=== PATIENT | female | born 1970 | race Caucasian/White ===

== ENCOUNTER 2017-02-04 11:02 | Outpatient (CLI) ==
[2017-02-04 11:23] LABS: BASOPHILS # (AUTO) 0.1 K/uL (0-0.2); BASOPHILS % (AUTO) 0.9 % (0.0-3.0); EOSINOPHILS # (AUTO) 0.1 K/ul (0.0-0.7); EOSINOPHILS % (AUTO) 1.6 % (0.0-7.0); HEMATOCRIT 41.7 % (37.0-47.0); HEMOGLOBIN 14.1 g/dl (12.0-16.0); IMMATURE GRANULOCYTE % (AUTO) 0.4 % (0.0-5.0); LYMPHOCYTES # (AUTO) 1.7 K/uL (0.60-3.4); LYMPHOCYTES % (AUTO) 30.5 (10.0-50.0); MEAN CORPUSCULAR HEMOGLOBIN 31.2 pg (27.0-31.0); MEAN CORPUSCULAR HGB CONC 33.8 (31.8-35.4); MEAN CORPUSCULAR VOLUME 92.3 fl (81.0-99.0); MONOCYTES # (AUTO) 0.5 K/uL (0.4-2.0); MONOCYTES % (AUTO) 8.2 (0-10); NEUTROPHILS # (AUTO) 3.3 K/ul (2.0-6.9); NEUTROPHILS % (AUTO) 58.4; PLATELET COUNT 181 10^3/uL (140-440); RED BLOOD COUNT 4.52 10^6/ul (4.20-5.40); WHITE BLOOD COUNT 5.64 K/ul (4.6-10.2)
[2017-02-04 11:26] LABS: BILIRUBIN,URINE Negative (NEGATIVE); KETONES,URINE Negative (NEGATIVE); LEUKOCYTE ESTERASE ,URINE Negative (NEGATIVE); NITRITE,URINE Negative (NEGATIVE); PROTEIN,URINE Negative (NEGATIVE); URINE, BLOOD Negative (NEGATIVE)
[2017-02-04 11:28] LABS: ADD URINE MICROSCOPIC NO
[2017-02-04 11:34] LABS: COCAIN SCREEN,URINE NEGATIVE (NEGATIVE)
[2017-02-04 12:01] LABS: ALBUMIN 3.9 g/dL (3.4-5.0); ALBUMIN/GLOBULIN RATIO 1.22; ANION GAP 12.9; BILIRUBIN,TOTAL 0.47 mg/dL (0.00-1.20); BUN/CREATININE RATIO 14.81; CALCIUM 9.3 mg/dL (8.2-10.2); CHOL/HDL RATIO 2.7 (4.5-5.5); CREATININE 0.81 mg/dL (0.60-1.30); POTASSIUM 3.9 mmol/L (3.5-5.10); TOTAL PROTEIN 7.1 g/dL (6.4-8.2)
== END 2017-02-04 11:03 | disposition home or self-care (01) ==
LOC: LAB 11:02
PROVIDERS: ATTEND Nurse Practitioner Family
DX: F41.8 Other specified anxiety disorders (principal); E75.6 Lipid storage disorder, unspecified; Z98.84 Bariatric surgery status
CPT/HCPCS: 36415; 80053; 80061; 80306; 81001; 84443; 85025

== ENCOUNTER 2017-08-14 10:15 | Outpatient (CLI) ==
--- NOTE | 2017-08-14 11:06 | US ---
EXAM: Left lower extremity venous Doppler History: Left lower extremity pain. Technique: Multiple sonographic images through the left lower extremity were obtained. Color duplex Doppler was used to interrogate flow. Findings: The left common femoral, greater saphenous, profunda, superficial femoral, popliteal, valeria kandi, posterior tibial and anterior tibial veins demonstrate spontaneous flow with normal compression and normal augmentation. Impression: No sonographic evidence for deep venous thrombosis.
== END 2017-08-14 10:16 | disposition home or self-care (01) ==
LOC: RAD 10:15
PROVIDERS: ATTEND Nurse Practitioner Family
DX: M79.605 Pain in left leg (principal); M79.89 Other specified soft tissue disorders; F17.200 Nicotine dependence, unspecified, uncomplicated

== ENCOUNTER 2017-09-12 16:15 | Outpatient (CLI) | END 2017-09-12 16:16 | disposition home or self-care (01) | LOC: FCC-LAB 16:15 | PROVIDERS: ATTEND Nurse Practitioner Family | DX: E75.6 Lipid storage disorder, unspecified (principal); F41.8 Other specified anxiety disorders | CPT/HCPCS: 36415; 80053; 80061; 85025 ==

== ENCOUNTER 2017-10-23 15:38 | Outpatient (CLI) ==
--- NOTE | 2017-10-23 16:09 | DI ---
EXAM: Chest two view, frontal and lateral views. HISTORY: Nicotine dependence. COMPARISON: None available. FINDINGS: The heart size is normal. There is no pulmonary vascular congestion. The lungs are clear . No pleural effusion or pneumothorax is seen. No acute osseous abnormality identified. Clips seen in the upper abdomen. IMPRESSION: No acute cardiopulmonary process.
--- NOTE | 2017-10-23 16:09 | DI ---
EXAM: Radiographs, right hip HISTORY: Right hip pain. COMPARISON: None available. TECHNIQUE: Two-view. FINDINGS: Bone mineralization is normal. There is no fracture or dislocation. The joint spaces are maintained. No focal soft tissue abnormality is seen. Clip noted in the pelvis. IMPRESSION: No abnormality of the right hip.
== END 2017-10-23 15:39 | disposition home or self-care (01) ==
LOC: RAD 15:38
PROVIDERS: ATTEND Nurse Practitioner Family
DX: M25.551 Pain in right hip (principal); R05 Cough; F17.200 Nicotine dependence, unspecified, uncomplicated

== ENCOUNTER 2017-10-29 13:04 | Outpatient (CLI) | END 2017-10-29 13:05 | disposition home or self-care (01) | LOC: CAR 13:04 | PROVIDERS: ATTEND Nurse Practitioner Family | DX: F17.200 Nicotine dependence, unspecified, uncomplicated (principal) ==

== ENCOUNTER 2018-01-09 14:15 | Outpatient (RCR) ==
--- NOTE | 2017-12-12 16:44 | RS.OTEVAL ---
Subjective Date of Note: 12/12/17 Visit #: 1 Date of Evaluation: 12/12/17 Payer Source: Medicaid Date of Onset/Injury/Change in Status: 08/15/14 Surgery Performed?: No Treatment Diagnosis: M25.532, M79.632 *Precautions: Inflammation in digits of LUE Prior Level of Function.....Patient was independent with: ADL's, Self Care, Work /Vocation, Caregiving, Ambulation/Mobility, Community Integration/Access History of Condition/Mechanism of Injury: Pt reports she does not know exactly when she hurt herself but her Left shoulder and forearm is hurting her at a 5/ 10 at rest. Pt reports when she is using her LUE it hurts at 8/10. 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 Pt reports she has been taking steroids and finishes the medicine today. Pt has used epsom salts and was encouraged to use ice. Pt has edema of her fingers of both hands. Pt has pain of 8/10 with gripping with LUE. Pain at times will run up into her neck and head. Level of Function: Pt continues to work at [employer] and is independent with ADLS. Pt has 18.75% limitation. Current Complaints/Gains: Pain in her LUE forearm, up into her shoulder and the neck. Pt c/o numbness and tingling in her hand and forearm. Pt reports pain in the subscapularis, supraspinatus, infraspinatus, serratus and teres major muscles. Pt complains of pain in the lateral epicondylitis area and forearm. Pt has edema of the left hand : index - 7.4 cm, long- 7.0 cm, ring- 6.6 cm, small- 6.0 cm, thumb 7.4 cm, Right hand: index - 7.0 cm, long- 7.0 cm, ring- 6.5 cm, small-5.7 cm, thumb 7.0 cm Medical History Medical History: Cancer Medical History Comments:: Arthritis in knees, bursitis in Right shoulder, Left wrist pain, and left forearm pain. Ovarian cancer Surgical History Comments:: Gastric sleeve, Left tubal removal, Gall bladder, Total hysterectomy, Tubal ligations. Hx Home Medications: xanax, neurotin, trazadone, cymbalta Patient's Goals: To be able to work without pain in the left arm and shoulder and neck. Pain Assessment - Pain Description Pain Description: Radiating Pain Location: Left wrist and forearm, shoulder and neck. Pain Description: Tingling and numbness in left hand, ring, long, and index Current Pain Intensity: 5 Worst Pain Intensity: 9 Functional Outcome Measures - G Codes & Severity Modifier G Codes: Carrying, moving, and handling. Current is CI, Goal is CH Source of G Code score: Carrying, moving, and handling. Observation - Observation Posture: Normal Handedness: Right Shoulder ROM: Right WFL's Shoulder Muscle Strength: Right WFL's - Left Shoulder ROM Left Shoulder Flexion: 155 Left Shoulder Extension: 50 Left Shoulder Abduction: 90 Left Shoulder Internal Rotation: 45 Left Shoulder External Rotation: 60 Left Shoulder ROM Limitations: Muscle Weakness, Pain - Left Shoulder Strength Left Shoulder Flexion: 3- Fair- Left Shoulder Extension: 3- Fair- Left Shoulder Abduction: 3- Fair- Left Shoulder Adduction: 3- Fair- Left Shoulder External Rotation: 3- Fair- Left Shoulder Internal Rotation: 3- Fair- - Right Shoulder Strength Right Shoulder Flexion: 4+ Good + Right Shoulder Extension: 4+ Good + Right Shoulder Abduction: 4+ Good + Right Shoulder Adduction: 4+ Good + Right Shoulder External Rotation: 4+ Good + Right Shoulder Internal Rotation: 4+ Good + - Special Tests Shoulder Davis-Elías Impingement Test: Negative Left (Had an elevated first rib) Comments: Dash assessment score is 31.25 on optional items and 70.45 on symptom score - Left Elbow ROM Left Elbow Extension: 0 Left Elbow Flexion: 145 Left Elbow Supination: 90 Left Elbow Pronation: 90 - Left Elbow Strength Left Elbow Extension: 4- Good- Left Elbow Flexion: 4- Good- Left Forearm Pronation: 4- Good- Left Forearm Supination: 4- Good- - Right Elbow Strength Right Elbow Extension: 4+ Good + Right Elbow Flexion: 4+ Good + Right Forearm Pronation: 4+ Good + Right Forearm Supination: 4+ Good + Wrist ROM: Bilaterally WFL's Wrist Muscle Strength: Bilaterally WFL's - Medical Receptionist Medical Assistant Strength Left Medical Receptionist Medical Assistant Strength: 46 Right Medical Receptionist Medical Assistant Strength: 52 Medical Receptionist Medical Assistant Strength Left Hand Medical Receptionist Medical Assistant Strength: 46 Right Hand Medical Receptionist Medical Assistant Strength: 52 Dynamometer Testing Position: 2nd Position Palpation Palpation Findings: Tenderness, Trigger Point Sensation Right Upper Extremity: Intact/Normal Left Upper Extremity: Impaired Sensation Description: Numbness Comments: Pt can feel correctly with fingers. Pt's hand is numb. Modalities - Treatment Modality: Ultrasound Parameters/Method Applied: .4 w/cm2 for 8 minutes (non-thermal) to left shoulder to decrease pain and inflammation. Treatment Area: Left shoulder Patient Position: Sitting - Treatment Modality: Class 4 Laser Parameters/Method Applied: Left shoulder to decrease pain. Treatment Area: Left shoulder Patient Position: Sitting - Hot Pack/Cryotherapy Treatment: Cryotherapy Interventions - Exercise/Activities Exercise/Activities/Manual Therapy: MT x 2 to extensor digitorum communis, suprispinatus, subscapularis HOME EXERCISE PROGRAM: ice to left shoulder. Rest it when possible. - Charges Timed Code Treatment Minutes: 70 Total Treatment Time: 60 Procedures billed for this date of service:: Evaluation- min, MT x 2, CP EVALUATION COMPLEXITY LEVEL: HISTORY: Low, EXAM OF BODY SYSTEMS: Low, CLINICAL DECISION MAKING: Low Assessment Assessment: Pt has pain in the LUE forearm, and shoulder. Pt has inflammation in left shoulder and forearm, and digits. Patient Education: Education of diagnosis, Home Exercise Program, Education of Plan of Care Rehab Potential: Good Problems/Comments: Pt has to keep working and is not always able to rest. Short Term Goals Goal #1: Pt pain to decrease to 2/10. Goal to be met by: 12/26/17 Goal #2: Pt to be independent with home exercise program. Goal to be met by: 12/26/17 Goal #3: Pt to increase LUE strength to 4-/5. Tripe Cooker Goals Goal #1: Pt pain to decrease to 0/10. Goal to be met by: 01/13/18 Goal to be met by: 01/13/18 Goal #3: Pt to increase LUE strength to 4+/5. Goal to be met by: 01/13/18 Plan - Treatment to be provided Procedures: Therapeutic Exercises, Therapeutic Activity, Neuromuscular Rehab, Manual Therapy, Patient Education Modalities: Electrical Stimulation, Ultrasound/Phonophoresis, Cryotherapy - Treatment Plan Frequency: 2 X week Duration: 4 weeks ORDER # VISITS AND/OR THROUGH DATE: 8 - Treatment Code (1) Left shoulder pain Code(s): M25.512 - PAIN IN LEFT SHOULDER Comments: M25.512 Left shoulder pain. (2) Pain of left forearm Code(s): M79.632 - PAIN IN LEFT FOREARM Comments: M79.32 Left forearm pain (3) Muscle weakness (generalized) Code(s): M62.81 - MUSCLE WEAKNESS (GENERALIZED) Comments: M62.81 Muscle weakness
--- NOTE | 2017-12-19 08:24 | RS.OTDNOTE ---
Subjective Date of Note: 12/18/17 Visit #: 2 Date of Evaluation: 12/12/17 Payer Source: Medicaid Treatment Diagnosis: M25.532, M79.632 *Precautions: Inflammation in digits of LUE Current Complaints/Gains: Pt with c/o hand numbness and tender areas with palpation in trapezius and epicondyle. Pain Assessment - Pain Description Pain Description: Radiating Pain Location: Left wrist and forearm, shoulder and neck. Pain Description: Tingling and numbness in left hand, ring, long, and index Modalities - Treatment Modality: Ultrasound Parameters/Method Applied: .04w/cm2 x 7 mins each to epicondyle and traps Patient Position: Sitting - Hot Pack/Cryotherapy Treatment: Cryotherapy (Ice massage to epicondyle with CP applied to shoulder/ deltoids ) Interventions - Exercise/Activities Exercise/Activities/Manual Therapy: MT x 1 to extensor digitorum communis, suprispinatus, subscapularis HOME EXERCISE PROGRAM: ice to left shoulder. Rest it when possible. - Charges Timed Code Treatment Minutes: 51 Total Treatment Time: 51 Procedures billed for this date of service:: CP US MT Assessment Patient Education: Education of diagnosis, Body/Joint mechanics, Home Exercise Program, Home Safety, Activity Modification, Education of Plan of Care Patient demonstrates compliance with HEP?: Yes Short Term Goals Goal #1: Pt pain to decrease to 2/10. Goal to be met by: 12/26/17 Progress towards goal: Progressing Goal #2: Pt to be independent with home exercise program. Goal to be met by: 12/26/17 Progress towards goal: Progressing Goal #3: Pt to increase LUE strength to 4-/5. Progress towards goal: Progressing [facility] Goals Goal #1: Pt pain to decrease to 0/10. Goal to be met by: 01/13/18 Progress towards goal: Progressing Goal to be met by: 01/13/18 Progress towards goal: Progressing Goal #3: Pt to increase LUE strength to 4+/5. Goal to be met by: 01/13/18 Progress towards goal: Progressing Plan PLAN OF CARE EXPIRES ON:: 01/13/18 ORDER # VISITS AND/OR THROUGH DATE: 8 PLAN: Cont per POC to max fx strength/ROM with decreased c/o pain
--- NOTE | 2017-12-24 10:10 | RS.OTDNOTE ---
Subjective Date of Note: 12/24/17 Visit #: 3 Date of Evaluation: 12/12/17 Payer Source: Medicaid Treatment Diagnosis: M25.532, M79.632 *Precautions: Inflammation in digits of LUE Current Complaints/Gains: Left shoulder pain at 6/10. Left elbow pain is 5/10. Pain Assessment - Pain Description Pain Description: Radiating Pain Location: Left wrist and forearm, shoulder and neck. Pain Description: Tingling and numbness in left hand, ring, long, and index Current Pain Intensity: 6 Other comments regarding pain:: Pt's pain decreased to 3/10. Pt reports she has pain all of the time. Modalities - Treatment Modality: Ultrasound Parameters/Method Applied: .4w/cm2 for 7 minutes to the left subscapularis and posterior scapula and serratus posterior superior. Interventions - Exercise/Activities Exercise/Activities/Manual Therapy: MT x 2 to extensor digitorum communis, suprispinatus, subscapularis, serratus posterior superior HOME EXERCISE PROGRAM: Patient is going to put ice to left shoulder when she gets home. Rest it when possible. - Charges Timed Code Treatment Minutes: 45 Total Treatment Time: 50 Procedures billed for this date of service:: MT x 2, US Assessment Assessment: Pt's pain decreases with therapy. Pt reports it is feeling better and she is trying to not use her LUE as much at work. Patient Education: Education of diagnosis, Education of Plan of Care Problems/Comments: Pt complains of left shoulder pain in the serratus posterior superior muscle. Patient demonstrates compliance with HEP?: Yes Short Term Goals Goal #1: Pt pain to decrease to 2/10. Goal to be met by: 12/26/17 Progress towards goal: Progressing Goal #2: Pt to be independent with home exercise program. Goal to be met by: 12/26/17 Progress towards goal: Progressing Goal #3: Pt to increase LUE strength to 4-/5. Progress towards goal: Progressing [facility] Goals Goal #1: Pt pain to decrease to 0/10. Goal to be met by: 01/13/18 Progress towards goal: Progressing Goal to be met by: 01/13/18 Progress towards goal: Progressing Goal #3: Pt to increase LUE strength to 4+/5. Goal to be met by: 01/13/18 Progress towards goal: Progressing Plan PLAN OF CARE EXPIRES ON:: 01/13/19 ORDER # VISITS AND/OR THROUGH DATE: 8 PLAN: 8 treatments
--- NOTE | 2017-12-30 08:16 | RS.OTDNOTE ---
Subjective Date of Note: 12/29/17 Visit #: 4 Date of Evaluation: 12/12/17 Payer Source: Medicaid Treatment Diagnosis: M25.532, M79.632 *Precautions: Inflammation in digits of LUE Current Complaints/Gains: Pt states pain relief from therapy and that she has been trying to ice during work breaks. Pain Assessment - Pain Description Pain Description: Radiating Pain Location: Left wrist and forearm, shoulder and neck. Pain Description: Tingling and numbness in left hand, ring, long, and index Modalities - Treatment Modality: Ultrasound Parameters/Method Applied: .04w/cm2 x 10 mins Patient Position: Sitting - Hot Pack/Cryotherapy Treatment: Cryotherapy (CP x10 mins) Interventions - Exercise/Activities Exercise/Activities/Manual Therapy: MT x 2 to extensor digitorum communis, suprispinatus, subscapularis, serratus posterior superior HOME EXERCISE PROGRAM: Patient is going to put ice to left shoulder when she gets home. Rest it when possible. - Charges Timed Code Treatment Minutes: 36 Total Treatment Time: 48 Procedures billed for this date of service:: CP US MT Assessment Patient Education: Education of diagnosis, Body/Joint mechanics, Home Exercise Program, Home Safety, Activity Modification, Education of Plan of Care Patient demonstrates compliance with HEP?: Yes Short Term Goals Goal #1: Pt pain to decrease to 2/10. Goal to be met by: 12/26/17 Progress towards goal: Progressing Goal #2: Pt to be independent with home exercise program. Goal to be met by: 12/26/17 Progress towards goal: Progressing Goal #3: Pt to increase LUE strength to 4-/5. Progress towards goal: Partially Met Fuselage Framer Goals Goal #1: Pt pain to decrease to 0/10. Goal to be met by: 01/13/18 Progress towards goal: Progressing Goal to be met by: 01/13/18 Progress towards goal: Progressing Goal #3: Pt to increase LUE strength to 4+/5. Goal to be met by: 01/13/18 Progress towards goal: Progressing Plan PLAN OF CARE EXPIRES ON:: 01/13/18 ORDER # VISITS AND/OR THROUGH DATE: 8 PLAN: Cont per POC to max fx use, ROM and strength with decreased c/o pain in L UE
--- NOTE | 2018-01-01 09:55 | RS.OTDNOTE ---
Subjective Date of Note: 01/01/18 Visit #: 5 Date of Evaluation: 12/12/17 Payer Source: Medicaid Treatment Diagnosis: M25.532, M79.632 *Precautions: Inflammation in digits of LUE Current Complaints/Gains: Pt states improvement with pain, numbness and ROM. Pain Assessment - Pain Description Pain Description: Radiating, Dull Pain Location: Left wrist and forearm, shoulder and neck. Pain Description: Tingling and numbness in left hand, ring, long, and index Current Pain Intensity: 1-2 Worst Pain Intensity: 5 Modalities - Treatment Modality: Ultrasound Parameters/Method Applied: .04w/cm2 x 10 mins - Hot Pack/Cryotherapy Treatment: Hot Pack Comments:: HP prior to gentle stretching/PROM Interventions - Exercise/Activities Exercise/Activities/Manual Therapy: MT to extensor digitorum communis, suprispinatus, subscapularis, serratus posterior superior. TE performed with red t-band with HEP ed provided for ER and retraction along with door frame stretches and wrist flexion/extension stretches to perform during work hrs. HOME EXERCISE PROGRAM: Patient is going to put ice to left shoulder when she gets home. Rest it when possible. - Objective Findings Objective Findings:: Pain increase with full shoulder flexion and abduction. Radial nerve pain with wrist extension. - Charges Timed Code Treatment Minutes: 34 Total Treatment Time: 46 Procedures billed for this date of service:: HP US EX Assessment Patient Education: Education of diagnosis, Body/Joint mechanics, Home Exercise Program, Home Safety, Activity Modification, Education of Plan of Care Patient demonstrates compliance with HEP?: Yes Short Term Goals Goal #1: Pt pain to decrease to 2/10. Goal to be met by: 12/26/17 Progress towards goal: Progressing Goal #2: Pt to be independent with home exercise program. Goal to be met by: 12/26/17 Progress towards goal: Partially Met Goal #3: Pt to increase LUE strength to 4-/5. Progress towards goal: Met Custodial Goals Goal #1: Pt pain to decrease to 0/10. Goal to be met by: 01/13/18 Progress towards goal: Progressing Goal to be met by: 01/13/18 Progress towards goal: Progressing Goal #3: Pt to increase LUE strength to 4+/5. Goal to be met by: 01/13/18 Progress towards goal: Progressing Plan PLAN OF CARE EXPIRES ON:: 01/13/18 ORDER # VISITS AND/OR THROUGH DATE: 8 PLAN: Continue current POC to max fx strength and ROM with decreased c/o pain/ numbness.
--- NOTE | 2018-01-05 09:57 | RS.OTDNOTE ---
Subjective Date of Note: 01/05/18 Visit #: 6 Date of Evaluation: 12/12/17 Payer Source: Medicaid Treatment Diagnosis: M25.532, M79.632 *Precautions: Inflammation in digits of LUE Current Complaints/Gains: Pt voices and demo increased pain and decreased AROM. States she believes she worked to hard yesterday and that she did apply a CP during work hrs. States pain and AROM is better today vs yesterday, rating pain yesterday at 10 1/2. Pain Assessment - Pain Description Pain Description: Radiating, Dull Pain Location: Left wrist and forearm, shoulder and neck. Pain Description: Tingling and numbness in left hand, ring, long, and index Current Pain Intensity: 4 Worst Pain Intensity: 7 Modalities - Treatment Modality: Ultrasound Parameters/Method Applied: .04w/cm2 x 12 mins Patient Position: Sitting - Hot Pack/Cryotherapy Treatment: Hot Pack, Cryotherapy Comments:: HP x 10 mins prior with CP x 10 mins following US/MT Interventions - Exercise/Activities Exercise/Activities/Manual Therapy: MT to extensor digitorum communis, suprispinatus, subscapularis, serratus posterior superior. HOME EXERCISE PROGRAM: Patient is going to put ice to left shoulder when she gets home. Rest it when possible. - Objective Findings Objective Findings:: Pain increase with full shoulder flexion and abduction. Radial nerve pain with wrist extension. - Charges Timed Code Treatment Minutes: 34 Total Treatment Time: 51 Procedures billed for this date of service:: HP US MT Assessment Patient Education: Education of diagnosis, Body/Joint mechanics, Home Exercise Program, Home Safety, Activity Modification, Education of Plan of Care Patient demonstrates compliance with HEP?: Yes Short Term Goals Goal #1: Pt pain to decrease to 2/10. Goal to be met by: 12/26/17 Progress towards goal: Progressing Goal #2: Pt to be independent with home exercise program. Goal to be met by: 12/26/17 Progress towards goal: Partially Met Goal #3: Pt to increase LUE strength to 4-/5. Progress towards goal: Met Half-Way Goals Goal #1: Pt pain to decrease to 0/10. Goal to be met by: 01/13/18 Progress towards goal: Progressing Goal to be met by: 01/13/18 Progress towards goal: Progressing Goal #3: Pt to increase LUE strength to 4+/5. Goal to be met by: 01/13/18 Progress towards goal: Progressing Plan PLAN OF CARE EXPIRES ON:: 01/13/18 ORDER # VISITS AND/OR THROUGH DATE: 8 PLAN: Cont per POC x 2 tx sessions
--- NOTE | 2018-01-09 15:31 | RS.OTDNOTE ---
Subjective Date of Note: 01/09/18 Visit #: 6 Date of Evaluation: 12/12/17 Payer Source: Medicaid Treatment Diagnosis: M25.532, M79.632 *Precautions: Inflammation in digits of LUE Current Complaints/Gains: Pt states she has been wearing a lateral epicondyle strap for the past 2 days. Pt also states she has been heating up gel patch attached but is instructed to freeze patch and isreal. Pain Assessment - Pain Description Pain Description: Radiating, Dull Pain Location: Left wrist and forearm, shoulder and neck. Pain Description: Tingling and numbness in left hand, ring, long, and index Modalities - Treatment Modality: Ultrasound Parameters/Method Applied: .04w/cm2 x 7 mins to trap and x7 mins to lateral epicondyle - Hot Pack/Cryotherapy Treatment: Cryotherapy Comments:: CP x 10 mins to shoulder along with ice massage to elbow Interventions - Exercise/Activities Exercise/Activities/Manual Therapy: MT to extensor digitorum communis, suprispinatus, subscapularis, serratus posterior superior. Pt performed and ed on stretching program. HOME EXERCISE PROGRAM: Patient is going to put ice to left shoulder when she gets home. Rest it when possible. - Objective Findings Objective Findings:: Pain increase with full shoulder flexion and abduction. Radial nerve pain with wrist extension. - Charges Timed Code Treatment Minutes: 49 Total Treatment Time: 49 Procedures billed for this date of service:: CP US EX Assessment Patient Education: Education of diagnosis, Body/Joint mechanics, Home Exercise Program, Home Safety, Activity Modification, Education of Plan of Care Patient demonstrates compliance with HEP?: Yes Short Term Goals Goal #1: Pt pain to decrease to 2/10. Goal to be met by: 12/26/17 Progress towards goal: Partially Met Goal #2: Pt to be independent with home exercise program. Goal to be met by: 12/26/17 Progress towards goal: Met Goal #3: Pt to increase LUE strength to 4-/5. Progress towards goal: Met Shelter Goals Goal #1: Pt pain to decrease to 0/10. Goal to be met by: 01/13/18 Progress towards goal: Progressing Goal to be met by: 01/13/18 Progress towards goal: Progressing Goal #3: Pt to increase LUE strength to 4+/5. Goal to be met by: 01/13/18 Progress towards goal: Progressing Plan PLAN OF CARE EXPIRES ON:: 01/13/18 ORDER # VISITS AND/OR THROUGH DATE: 8 PLAN: Cont tx x 1 tx session
== END 2018-01-10 23:59 ==
PROVIDERS: ATTEND Nurse Practitioner Family
DX: M25.532 Pain in left wrist (principal); M79.632 Pain in left forearm

== ENCOUNTER 2018-01-13 14:56 | Outpatient (RCR) ==
--- NOTE | 2018-01-13 16:01 | RS.OTDNOTE ---
Subjective Date of Note: 01/13/18 Visit #: 7 Date of Evaluation: 12/12/17 Payer Source: Medicaid Treatment Diagnosis: M25.532, M79.632 *Precautions: Inflammation in digits of LUE Current Complaints/Gains: Pt states good compliance with applying CP and donning lateral epicondyle brace leonardo during work hrs. 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 Pain Assessment - Pain Description Pain Description: Dull Pain Location: Left wrist and forearm, shoulder and neck. Pain Description: Tingling and numbness in left hand, ring, long, and index Current Pain Intensity: 0 Worst Pain Intensity: 2 Modalities - Treatment Modality: US with ES (Comb.) Parameters/Method Applied: To pt tolerance Treatment Area: shoulder - Hot Pack/Cryotherapy Treatment: Cryotherapy Comments:: CP x 10 mins Interventions - Exercise/Activities Exercise/Activities/Manual Therapy: MT to extensor digitorum communis, suprispinatus, subscapularis, serratus posterior superior. Pt performed and ed on stretching program. HOME EXERCISE PROGRAM: Patient is going to put ice to left shoulder when she gets home. Rest it when possible. - Objective Findings Objective Findings:: Pain increase with full shoulder flexion and abduction. Radial nerve pain with wrist extension. - Charges Timed Code Treatment Minutes: 50 Total Treatment Time: 50 Procedures billed for this date of service:: CP US MT Assessment Patient Education: Education of diagnosis, Body/Joint mechanics, Home Exercise Program, Home Safety, Activity Modification, Education of Plan of Care Patient demonstrates compliance with HEP?: Yes Short Term Goals Goal #1: Pt pain to decrease to 2/10. Goal to be met by: 12/26/17 Progress towards goal: Met Goal #2: Pt to be independent with home exercise program. Goal to be met by: 12/26/17 Progress towards goal: Met Goal #3: Pt to increase LUE strength to 4-/5. Progress towards goal: [place] Planning Teacher Goals Goal #1: Pt pain to decrease to 0/10. Goal to be met by: 01/13/18 Progress towards goal: Progressing Goal to be met by: 01/13/18 Goal #3: Pt to increase LUE strength to 4+/5. Goal to be met by: 01/13/18 Progress towards goal: Met Plan PLAN OF CARE EXPIRES ON:: 01/13/18 ORDER # VISITS AND/OR THROUGH DATE: 8 PLAN: Pt DC'd at this time. Pt to cont with HEP, stretching, and applying CP
--- NOTE | 2018-01-27 10:10 | RS.OTQKDC ---
OT Discharge Date of Discharge: 01/27/18 Number of Visits: 7 Reason for Discharge: Pt dc'd to cont I HEP, ice massage, and rest with donning brace.
== END 2018-02-10 23:59 ==
PROVIDERS: ATTEND Nurse Practitioner Family
DX: M25.532 Pain in left wrist (principal); M79.632 Pain in left forearm

== ENCOUNTER 2018-12-21 16:12 | Outpatient (CLI) ==
--- NOTE | 2018-12-21 16:40 | DI ---
EXAM: Two views of the abdomen. History: Left lower quadrant abdominal pain. Findings: Surgical clips seen within the abdomen. Nonspecific but nonobstructive bowel gas pattern. No free intraperitoneal air. Scattered colonic stool. No acute osseous abnormalities and no suspi cious calcifications. Impression: No acute radiographic findings within the abdomen
== END 2018-12-21 16:13 | disposition home or self-care (01) ==
LOC: RAD 16:12
PROVIDERS: ATTEND Family Medicine
DX: R10.32 Left lower quadrant pain (principal); R10.12 Left upper quadrant pain; R10.84 Generalized abdominal pain

== ENCOUNTER 2022-10-22 16:39 | Inpatient (IN) ==
[2022-10-22 17:10] VITALS: BMI 30.9
[2022-10-22] MEDS ORDERED: ASPIRIN CHEWABLE PO ONE (17:17)
[2022-10-22] MEDS ORDERED: MORPHINE 2 MG/ML SYRINGE IVP ONE (17:17)
[2022-10-22] MEDS ORDERED: GI COCKTAIL PO ONE (17:18)
--- NOTE | 2022-10-22 17:21 | ED.PDOC ---
General <LEELA AYALA MD - Last Filed: 10/22/22 18:35> ED Provider: Dr. LEELA AYALA MD Chief Complaint: Chest Pain Stated Complaint: mild to mod anterior chest pain sharp today, constant since 2pm, hx cardiac stent, no allergy to morphine or aspirin Time Seen by Provider: 10/22/22 17:10 Information Source: Patient Primary Care Provider: ROSS JOYNER MD Nursing and Triage Documentation Reviewed and Agree: Yes Does patient meet sepsis criteria?: No System Inflammatory Response Syndrome: Not Applicable Sepsis Protocol: For patient's 13 years and over: Temp is 96.8 and below OR 101 and greater Pulse >90 BPM Resp >20/minute Acutely Altered Mental Status Are patient's symptoms suggestive of a new infection, such as: -Pneumonia -Skin, Soft Tissue -Endocarditis -UTI -Bone, Joint Infection -Implantable Device -Acute Abdominal Infection -Wound Infection -Meningitis -Blood Stream Catheter Infection -Unknown Review of Systems <LEELA AYALA MD - Last Filed: 10/22/22 18:35> Review Of Systems Constitutional: Denies Fever Eyes: Denies Vision change Ears, Nose, Mouth, Throat: Denies Throat pain Respiratory: Denies Short of air Cardiac: Reports Chest pain GI: Denies Abdominal pain : Denies Frequency Musculoskeletal: Denies Neck pain Skin: Denies Cyanosis Neurological: Denies Cognitive dysfunction All Other Systems: Other PFSH <LEELA AYALA MD - Last Filed: 10/22/22 18:35> Medical History Family History Mother Cardiac disease Hyperlipidemia COPD (chronic obstructive pulmonary disease) Breast cancer BROTHER Psychiatric disorder SISTER Breast cancer AUNT Breast cancer Social History Smoking and tobacco status: Current every day smoker Tobacco: How many years used: 25 Passive smoking exposure: No Quit status: considering quitting Second hand smoke exposure: No Smoking risk assessment performed: No Alcohol intake: current Alcohol intake frequency: a few times a week Alcohol type: beer Counseling given: No Counseling provided: none Substance use type: does not use Counseling given: No Counseling provided: none Laura/adventist: MUSLIM Special laura needs: No Agree to transfusion: Yes Adopted: No Caregiver/support person: No Foster care: No Household members: none Housing: house Marital status: S SINGLE Lives independently: Yes Daycare: no daycare Number of children: 2 Number of grandchildren: 3 Highest education level completed: some college, no degree service: No USP: No Current occupational status: employed Current occupational exposures/hazards: No Pets and animals: Yes (hamster) History of recent travel: No Sexually active: No Do you think of yourself as: straight/heterosexual Current gender identity: female Seatbelt use: always Drives intoxicated or rides with intoxicated automation driver: No Water heater temperature set < 120 degrees: Yes Working smoke detector in home: Yes Fire extinguisher in home: Yes Carbon monoxide detector in home: Yes Firearms in home: No Surgical History (Updated 10/22/22 @ 22:32 by ANGEL GUTIERREZ RN) Female Reproductive History Menstrual Hx Hysterectomy: Yes Hx Tubal Ligation: Yes Physical Exam <LEELA AYALA MD - Last Filed: 10/22/22 18:35> Physical Exam Appearance: Reports Well-appearing Ill-appearing: None Pain Distress: Mild Eyes: Reports Conjunctiva clear ENT: Reports Oropharynx normal Neck: Supple Respiratory: Reports Airway patent, Breath sounds clear and Breath sounds equal Cardiovascular: Reports RRR GI/: Reports Soft and Nontender Musculoskeletal: Reports ROM intact and No edema Skin: Reports Warm and Dry Neurological: Reports Alert and Oriented Psychiatric: Reports Affect appropriate Interpretation <LEELA AYALA MD - Last Filed: 10/22/22 18:35> EKG Interpretation Time of EKG #1: 17:31 Rate: Normal Rhythm: Sinus Interpretation: no stemi <DAKOTA NÚÑEZ MD - Last Filed: 10/22/22 22:58> Radiology Interpretation Radiology Interpretation By: Radiologist Radiology Results: Negative Exam Interpreted: Portable CXR and CT Scan EKG Interpretation Time of EKG #2: 19:51 Rate: Normal Rhythm: Sinus Ectopy: None [place]: [place] ST Segment: Normal EKG Interpretation: no ischemia <DAKOTA NÚÑEZ MD - Last Filed: 10/22/22 22:58> Critical Care Note Total Critical Care Time (mins): 0 Course <LEELA AYALA MD - Last Filed: 10/22/22 18:35> Course 10/22/22 17:20 10/22/22 17:20 Orders, Labs, Meds: Lab Review 10/22/22 10/22/22 17:20 17:50 WBC 5.50 RBC 4.38 Hgb 13.8 Hct 40.5 MCV 92.5 MCH 31.5 H MCHC 34.1 RDW Coeff of Sandra 13.9 Plt Count 204 Immature Gran % (Auto) 0.2 Neut % (Auto) 55.2 Lymph % (Auto) 32.4 Graves % (Auto) 8.9 Eos % (Auto) 2.0 Baso % (Auto) 1.3 Neut # (Auto) 3.0 Lymph # (Auto) 1.8 Graves # (Auto) 0.5 Eos # (Auto) 0.1 Baso # (Auto) 0.1 Immature Gran # (Auto) 0.0 Sodium 139.3 Potassium 3.94 Chloride 106.8 Carbon Dioxide 28.6 Anion Gap 7.84 BUN 15.1 Creatinine 0.79 Estimated GFR (MDRD) 76.00 BUN/Creatinine Ratio 19.11 Glucose 82.0 Calcium 9.30 Total Bilirubin 0.41 AST 26.3 ALT 17.5 Alkaline Phosphatase 110.9 Troponin I < 0.012 Total Protein 7.15 Albumin 4.36 Globulin 2.79 Albumin/Globulin Ratio 1.56 D-Dimer 707.53 H SARS CoV-2 RNA Rapid MARLY Negative Orders Category Date Time Status PLACE PATIENT OBSERVATION .TO MEDSURG (MONITORED BED ADMISSION 10/22/22 20:27 Active ) EKG-(ED ONLY) Stat CARDIO 10/22/22 17:17 Completed INTAKE & OUTPUT Q8HR CARE 10/22/22 20:27 Completed NOTIFY PHYSICIAN OF CONSULT 0600 CARE 10/22/22 20:30 Active NOTIFY PHYSICIAN OF CONSULT ONCE CARE 10/22/22 20:30 Completed NPO REMINDER: IMAGING ONCE CARE 10/22/22 18:03 Completed TELEMETRY MONITORING TELE CARE 10/22/22 20:27 Active VITAL SIGNS Q4HR CARE 10/22/22 20:28 Active PHYSICIAN CONSULTATION [CONS] Routine CONSULTS 10/23/22 07:30 Ordered CARDIAC DIET DIETARY 10/23/22 Breakfast Ordered BASIC METABOLIC PANEL DAILY@0600 LAB 10/23/22 06:00 Ordered BASIC METABOLIC PANEL DAILY@0600 LAB 10/24/22 06:00 Ordered CBC W/ AUTO DIFF DAILY@0600 LAB 10/23/22 06:00 Ordered CBC W/ AUTO DIFF DAILY@0600 LAB 10/24/22 06:00 Ordered CBC W/ AUTO DIFF Stat LAB 10/22/22 17:20 Completed CMP [COMPREHENSIVE METABOLIC PANEL] Stat LAB 10/22/22 17:20 Completed CREATINE KINASE Q8H LAB 10/23/22 02:30 Ordered CREATINE KINASE Q8H LAB 10/23/22 10:30 Ordered D-DIMER Stat LAB 10/22/22 17:20 Completed SARS COV-2 RNA RAPID MARLY Stat LAB 10/22/22 17:50 Completed TROPONIN I Q8H LAB 10/23/22 02:30 Ordered TROPONIN I Q8H LAB 10/23/22 10:30 Ordered TROPONIN I Stat LAB 10/22/22 17:20 Completed Aspirin [Aspirin Chewable] MEDS 10/22/22 17:17 Discontinued 324 mg PO ONCE ONE Enoxaparin Sodium [Lovenox] MEDS 10/23/22 09:00 Active 40 mg SUBCUT DAILY Hydromorphone HCl [Dilaudid 1 mg/ml Syringe] MEDS 10/22/22 20:27 Active 1 mg IVP Q4HR PRN Mag-Al Plus//Lidocaine [Gi Cocktail] MEDS 10/22/22 17:18 Discontinued 30 ml PO ONCE ONE Morphine Sulfate [Morphine 2 mg/ml Syringe] MEDS 10/22/22 17:17 Discontinued 2 mg IVP ONCE ONE Ondansetron HCl/Pf [Zofran 4 mg/2 ml] MEDS 10/22/22 20:27 Active 4 mg IVP Q6H PRN Sodium Chloride 0.9% [Sodium Chloride] 1,000 ml MEDS 10/22/22 20:30 Active IV 75 mls/hr RESUSCITATION STATUS Routine OTHERS 10/22/22 20:27 Ordered CHEST, 1V AP ONLY Stat RADS 10/22/22 17:[address] CHEST PE PROTOCOL Stat RADS 10/22/22 18:03 Completed Medications Generic Name Dose Route Start Last Admin Trade Name Freq PRN Reason Stop Dose Admin Albuterol Sulfate 2 puff 10/22/22 21:57 Albuterol Sulfate (Ventolin Hfa) 18 Gm 1 Puff With Spacer IH Q6H PRN Dyspnea Atorvastatin Calcium 40 mg 10/22/22 22:00 Atorvastatin Calcium 20 Mg Tablet PO BEDTIME JUAN Enoxaparin Sodium 40 mg 10/23/22 09:00 Enoxaparin Sodium 40 Mg/0.4 Ml Syr SUBCUT DAILY [facility] Ferrous Sulfate 324 mg 10/22/22 22:35 Ferrous Sulfate 324 Mg Tablet. PO EVERY OTHER DAY JUAN Gabapentin 600 mg 10/23/22 09:00 Gabapentin 300 Mg Capsule PO BID JUAN Hydromorphone HCl 1 mg 10/22/22 20:27 Hydromorphone Hcl 1 Mg/Ml Syringe IVP Q4HR PRN Severe Pain Sodium Chloride 1,000 mls @ 75 mls/hr 10/22/22 20:30 10/22/22 22:21 Sodium Chloride IV 75 mls/hr .[id number] JUAN Administration Nitroglycerin 0.4 mg 10/22/22 21:57 Nitroglycerin 0.4 Mg Tab.Subl SL Q5M PRN chest pain Non-Formulary Medication 100 mg 10/22/22 22:00 Fluvoxamine PO QHS [facility] Non-Formulary Medication 0.25 - 0.5 mg 10/22/22 22:00 Semaglutide [Ozempic] SUBCUT DIRECTED [facility] Non-Formulary Medication 20 mg 10/22/22 22:00 Suvorexant PO QHS [facility] Ondansetron HCl 4 mg 10/22/22 20:27 Ondansetron Hcl/Pf 4 Mg/2 Ml Sdv IVP Q6H PRN Nausea / Vomiting Pantoprazole Sodium 40 mg 10/22/22 22:00 Pantoprazole Sodium 40 Mg Tablet. PO DAILY JUAN Ropinirole HCl 0.5 mg 10/23/22 09:00 Ropinirole Hcl 0.25 Mg Tablet PO DAILY [facility] Sucralfate 1 gm 10/22/22 22:00 Sucralfate 1 Gm Tablet PO ACHS JUAN Discontinued Medications Generic Name Dose Route Start Last Admin Trade Name Freq PRN Reason Stop Dose Admin Al Hydroxide/Mg Hydroxide 30 ml 10/22/22 17:18 10/22/22 17:53 Mag-Al Plus//Lidocaine 30 Ml Btl PO 10/22/22 17:19 30 ml ONCE ONE Administration Aspirin 324 mg 10/22/22 17:17 10/22/22 17:52 Aspirin 81 Mg Tab.Chew PO 10/22/22 17:18 324 mg ONCE ONE Administration Morphine Sulfate 2 mg 10/22/22 17:17 10/22/22 17:53 Morphine Sulfate 2 Mg/Ml Syringe IVP 10/22/22 17:18 2 mg ONCE ONE Administration Vital Signs: Temp Pulse Resp BP Pulse Ox 10/22/22 17:04 98 F 68 20 115/70 100 <DAKOTA NÚÑEZ MD - Last Filed: 10/22/22 22:58> Course Orders, Labs, Meds: Lab Review 10/22/22 10/22/22 17:20 17:50 WBC 5.50 RBC 4.38 Hgb 13.8 Hct 40.5 MCV 92.5 MCH 31.5 H MCHC 34.1 RDW Coeff of Sandra 13.9 Plt Count 204 Immature Gran % (Auto) 0.2 Neut % (Auto) 55.2 Lymph % (Auto) 32.4 Graves % (Auto) 8.9 Eos % (Auto) 2.0 Baso % (Auto) 1.3 Neut # (Auto) 3.0 Lymph # (Auto) 1.8 Graves # (Auto) 0.5 Eos # (Auto) 0.1 Baso # (Auto) 0.1 Immature Gran # (Auto) 0.0 Sodium 139.3 Potassium 3.94 Chloride 106.8 Carbon Dioxide 28.6 Anion Gap 7.84 BUN 15.1 Creatinine 0.79 Estimated GFR (MDRD) 76.00 BUN/Creatinine Ratio 19.11 Glucose 82.0 Calcium 9.30 Total Bilirubin 0.41 AST 26.3 ALT 17.5 Alkaline Phosphatase 110.9 Troponin I < 0.012 Total Protein 7.15 Albumin 4.36 Globulin 2.79 Albumin/Globulin Ratio 1.56 D-Dimer 707.53 H SARS CoV-2 RNA Rapid MARLY Negative Orders Category Date Time Status PLACE PATIENT OBSERVATION .TO MEDSURG (MONITORED BED ADMISSION 10/22/22 20:27 Active ) EKG-(ED ONLY) Stat CARDIO 10/22/22 17:17 Completed INTAKE & OUTPUT Q8HR CARE 10/22/22 20:27 Completed NOTIFY PHYSICIAN OF CONSULT 0600 CARE 10/22/22 20:30 Active NOTIFY PHYSICIAN OF CONSULT ONCE CARE 10/22/22 20:30 Completed NPO REMINDER: IMAGING ONCE CARE 10/22/22 18:03 Completed TELEMETRY MONITORING TELE CARE 10/22/22 20:27 Active VITAL SIGNS Q4HR CARE 10/22/22 20:28 Active PHYSICIAN CONSULTATION [CONS] Routine CONSULTS 10/23/22 07:30 Ordered CARDIAC DIET DIETARY 10/23/22 Breakfast Ordered BASIC METABOLIC PANEL DAILY@0600 LAB 10/23/22 06:00 Ordered BASIC METABOLIC PANEL DAILY@0600 LAB 10/24/22 06:00 Ordered CBC W/ AUTO DIFF DAILY@0600 LAB 10/23/22 06:00 Ordered CBC W/ AUTO DIFF DAILY@0600 LAB 10/24/22 06:00 Ordered CBC W/ AUTO DIFF Stat LAB 10/22/22 17:20 Completed CMP [COMPREHENSIVE METABOLIC PANEL] Stat LAB 10/22/22 17:20 Completed CREATINE KINASE Q8H LAB 10/23/22 02:30 Ordered CREATINE KINASE Q8H LAB 10/23/22 10:30 Ordered D-DIMER Stat LAB 10/22/22 17:20 Completed SARS COV-2 RNA RAPID MARLY Stat LAB 10/22/22 17:50 Completed TROPONIN I Q8H LAB 10/23/22 02:30 Ordered TROPONIN I Q8H LAB 10/23/22 10:30 Ordered TROPONIN I Stat LAB 10/22/22 17:20 Completed Aspirin [Aspirin Chewable] MEDS 10/22/22 17:17 Discontinued 324 mg PO ONCE ONE Enoxaparin Sodium [Lovenox] MEDS 10/23/22 09:00 Active 40 mg SUBCUT DAILY Hydromorphone HCl [Dilaudid 1 mg/ml Syringe] MEDS 10/22/22 20:27 Active 1 mg IVP Q4HR PRN Mag-Al Plus//Lidocaine [Gi Cocktail] MEDS 10/22/22 17:18 Discontinued 30 ml PO ONCE ONE Morphine Sulfate [Morphine 2 mg/ml Syringe] MEDS 10/22/22 17:17 Discontinued 2 mg IVP ONCE ONE Ondansetron HCl/Pf [Zofran 4 mg/2 ml] MEDS 10/22/22 20:27 Active 4 mg IVP Q6H PRN Sodium Chloride 0.9% [Sodium Chloride] 1,000 ml MEDS 10/22/22 20:30 Active IV 75 mls/hr RESUSCITATION STATUS Routine OTHERS 10/22/22 20:27 Ordered CHEST, 1V AP ONLY Stat RADS 10/22/22 17:[address] CHEST PE PROTOCOL Stat RADS 10/22/22 18:03 Completed Medications Generic Name Dose Route Start Last Admin Trade Name Freq PRN Reason Stop Dose Admin Albuterol Sulfate 2 puff 10/22/22 21:57 Albuterol Sulfate (Ventolin Hfa) 18 Gm 1 Puff With Spacer IH Q6H PRN Dyspnea Atorvastatin Calcium 40 mg 10/22/22 22:00 Atorvastatin Calcium 20 Mg Tablet PO BEDTIME JUAN Enoxaparin Sodium 40 mg 10/23/22 09:00 Enoxaparin Sodium 40 Mg/0.4 Ml Syr SUBCUT DAILY [facility] Ferrous Sulfate 324 mg 10/22/22 22:35 Ferrous Sulfate 324 Mg Tablet. PO EVERY OTHER DAY JUAN Gabapentin 600 mg 10/23/22 09:00 Gabapentin 300 Mg Capsule PO BID JUAN Hydromorphone HCl 1 mg 10/22/22 20:27 Hydromorphone Hcl 1 Mg/Ml Syringe IVP Q4HR PRN Severe Pain Sodium Chloride 1,000 mls @ 75 mls/hr 10/22/22 20:30 10/22/22 22:21 Sodium Chloride IV 75 mls/hr .[id number] JUAN Administration Nitroglycerin 0.4 mg 10/22/22 21:57 Nitroglycerin 0.4 Mg Tab.Subl SL Q5M PRN chest pain Non-Formulary Medication 100 mg 10/22/22 22:00 Fluvoxamine PO QHS [facility] Non-Formulary Medication 0.25 - 0.5 mg 10/22/22 22:00 Semaglutide [Ozempic] SUBCUT DIRECTED [facility] Non-Formulary Medication 20 mg 10/22/22 22:00 Suvorexant PO QHS [facility] Ondansetron HCl 4 mg 10/22/22 20:27 Ondansetron Hcl/Pf 4 Mg/2 Ml Sdv IVP Q6H PRN Nausea / Vomiting Pantoprazole Sodium 40 mg 10/22/22 22:00 Pantoprazole Sodium 40 Mg Tablet. PO DAILY JUNA Ropinirole HCl 0.5 mg 10/23/22 09:00 Ropinirole Hcl 0.25 Mg Tablet PO DAILY JUAN Sucralfate 1 gm 10/22/22 22:00 Sucralfate 1 Gm Tablet PO ACHS JUAN Discontinued Medications Generic Name Dose Route Start Last Admin Trade Name Freq PRN Reason Stop Dose Admin Al Hydroxide/Mg Hydroxide 30 ml 10/22/22 17:18 10/22/22 17:53 Mag-Al Plus//Lidocaine 30 Ml Btl PO 10/22/22 17:19 30 ml ONCE ONE Administration Aspirin 324 mg 10/22/22 17:17 10/22/22 17:52 Aspirin 81 Mg Tab.Chew PO 10/22/22 17:18 324 mg ONCE ONE Administration Morphine Sulfate 2 mg 10/22/22 17:17 10/22/22 17:53 Morphine Sulfate 2 Mg/Ml Syringe IVP 10/22/22 17:18 2 mg ONCE ONE Administration Vital Signs: Temp Pulse Resp BP Pulse Ox 10/22/22 17:04 98 F 68 20 115/70 100 ELEANOR Risk Score <LEELA AYALA MD - Last Filed: 10/22/22 18:35> ELEANOR Risk Score: Risk Score Odds of by 30D 0 0.1 (0.1-0.2) 1 0.3 (0.2-0.3) 2 0.4 (0.3-0.5) 3 0.7 (0.6-0.9) 4 1.2 (1.0-1.5) 5 2.2 (1.9-2.6) 6 3.0 (2.5-3.6) 7 4.8 (3.8-6.1) <DAKOTA NÚÑEZ MD - Last Filed: 10/22/22 22:58> Age >/= 65: No >/= 3 CAD Risk Factors: Yes Known CAD (Stenosis >/= 50%): Yes ASA Use in Past 7 Days: Yes Severe Angina (>/= 2 episodes in 24 hours): Yes EKG ST Changes >/= 0.5mm: No Postive Cardiac Marker: No ELEANOR Total Score: 4 Discharge Plan Discharge Patient Disposition: PLACED OBSERVATION Discharge Problem: Chest pain Did you review [place] [employer] for ALL controlled substances?: Not Applicable ED Provider: LEELA AYALA Condition: Fair <LEELA AYALA MD - Last Filed: 10/22/22 18:35> Physician Progress Note: care to midnight doctor at 19:00 []
[2022-10-22 17:30] LABS: BASOPHILS # (AUTO) 0.1 K/uL (0-0.2); BASOPHILS % (AUTO) 1.3 % (0.0-3.0); EOSINOPHILS # (AUTO) 0.1 K/ul (0.0-0.7); HEMATOCRIT 40.5 % (37.0-47.0); HEMOGLOBIN 13.8 g/dl (12.0-16.0); IMMATURE GRANULOCYTE % (AUTO) 0.2 % (0.0-5.0); LYMPHOCYTES # (AUTO) 1.8 K/uL (0.60-3.4); LYMPHOCYTES % (AUTO) 32.4 (10.0-50.0); MEAN CORPUSCULAR HEMOGLOBIN 31.5 pg (27.0-31.0); MEAN CORPUSCULAR HGB CONC 34.1 (31.8-35.4); MEAN CORPUSCULAR VOLUME 92.5 fl (81.0-99.0); MONOCYTES # (AUTO) 0.5 K/uL (0.4-2.0); MONOCYTES % (AUTO) 8.9 (0-10); NEUTROPHILS % (AUTO) 55.2 % (42.2-75.2); PLATELET COUNT 204 10^3/uL (140-440); RDW COEFFICIENT OF VARIATION 13.9 % (11.6-14.8); RED BLOOD COUNT 4.38 10^6/ul (4.20-5.40)
[2022-10-22 17:41] LABS: ALANINE AMINOTRANSFERASE 17.5 U/L (0-35); ALBUMIN 4.36 g/dL (3.5-5.0); ALKALINE PHOSPHATASE 110.9 U/L (38-126); ASPARTATE AMINO TRANSFERASE 26.3 U/L (14-36); BILIRUBIN,TOTAL 0.41 mg/dL (0.2-1.3); BLOOD UREA NITROGEN 15.1 mg/dL (7-17); CARBON DIOXIDE 28.6 mmol/L (22-30.0); CHLORIDE 106.8 mmol/L (98-107); CREATININE 0.79 mg/dL (0.60-1.30); POTASSIUM 3.94 mmol/L (3.5-5.1); SODIUM 139.3 mmol/L (134.5-145); TOTAL PROTEIN 7.15 g/dL (6.3-8.2)
--- NOTE | 2022-10-22 17:47 | DI ---
EXAM: SINGLE-VIEW CHEST HISTORY: Chest pain COMPARISON: Single-view chest 07/22/2022 FINDINGS: The cardiomediastinal silhouette is stable. There is no consolidation or effusion. No ac round valley osseous abnormalities. IMPRESSION: No evidence of active pulmonary disease
[2022-10-22 17:53] LABS: TROPONIN I < 0.012 ng/ml (0.0000-0.120)
[2022-10-22 18:32] LABS: SARS COV-2 RNA RAPID NAAT NEGATIVE (NEGATIVE)
--- NOTE | 2022-10-22 19:10 | CT ---
EXAM: CTA OF THE PULMONARY ARTERIES WITH CONTRAST TECHNIQUE: CTA of the pulmonary arteries was performed with contrast. 2-D and 3-D reconstructions we re performed. HISTORY: Elevated D-dimer COMPARISON: None. FINDINGS: Pulmonary arteries: No pulmonary embolus detected. Lungs/pleura: No mass or consolidation. No pleural effusion. Mediastinum: No adenopathy. Cardiovascular: No pericardial effusion. Atherosclerosis of the aorta and branch vessels. Coronary ar sean calcifications. Chest wall/axillae/thoracic inlet: No mass or adenopathy. Imaged upper abdomen: There is a small hiatal hernia. The esophagus at the diaphragm is mildly th ickened. Correlate with any evidence of reflux or esophagitis. There appears to been prior gastric s urgery. Bones: No aggressive osseous lesion identified. IMPRESSION: 1. Negative for pulmonary embolus. 2. Hiatal hernia with mild thickening of the esophagus at the gastroesophageal junction. Correlate w ith any prior history of esophagitis or reflux. All CT scans are performed using dose optimization techniques as appropriate to the performed exam an d includes at least one of the following: Automated exposure control, adjustment of the mA and/or kV according to size, and the use of iterative reconstruction technique. All CT scans are performed using dose optimization techniques as appropriate to the performed exam an d include at least one of the following: Automated exposure control, adjustment of the mA and/or kV according t o size, and the use of iterative reconstruction technique.
[2022-10-22] MEDS ORDERED: ZOFRAN 4 MG/2 ML IVP PRN (20:27)
[2022-10-22] MEDS ORDERED: DILAUDID 1 MG/ML SYRINGE IVP PRN (20:27)
[2022-10-22] MEDS ORDERED: NITROSTAT SL PRN (21:57)
[2022-10-22] MEDS ORDERED: VENTOLIN HFA (PER PUFF-WITH SPACER) IH PRN (21:57)
[2022-10-22] MEDS: SODIUM CHLORIDE 1,000 ML IV SCH (22:21)
[2022-10-22] MEDS: FERROUS SULFATE PO SCH (23:30)
[2022-10-22] MEDS: REQUIP PO SCH (23:52)
[2022-10-22] MEDS: LIPITOR PO SCH (23:52)
[2022-10-22] MEDS: CARAFATE PO SCH (23:52)
[2022-10-22] MEDS: NEURONTIN PO SCH (23:52)
[2022-10-22] MEDS: PROTONIX PO SCH (23:53)
[2022-10-23 03:00] LABS: BASOPHILS # (AUTO) 0.1 K/uL (0-0.2); EOSINOPHILS # (AUTO) 0.2 K/ul (0.0-0.7); EOSINOPHILS % (AUTO) 2.9 % (0.0-7.0); HEMATOCRIT 36.1 % (37.0-47.0); HEMOGLOBIN 12.3 g/dl (12.0-16.0); IMMATURE GRANULOCYTE % (AUTO) 0.3 % (0.0-5.0); LYMPHOCYTES # (AUTO) 1.9 K/uL (0.60-3.4); MEAN CORPUSCULAR HEMOGLOBIN 31.9 pg (27.0-31.0); MEAN CORPUSCULAR HGB CONC 34.1 (31.8-35.4); MEAN CORPUSCULAR VOLUME 93.5 fl (81.0-99.0); MONOCYTES # (AUTO) 0.7 K/uL (0.4-2.0); MONOCYTES % (AUTO) 12.1 (0-10); NEUTROPHILS % (AUTO) 51.7 % (42.2-75.2); PLATELET COUNT 179 10^3/uL (140-440); RED BLOOD COUNT 3.86 10^6/ul (4.20-5.40); WHITE BLOOD COUNT 5.87 K/ul (4.6-10.2)
[2022-10-23 03:13] LABS: BLOOD UREA NITROGEN 21.1 mg/dL (7-17); CALCIUM 8.14 mg/dL (8.4-10.2); CARBON DIOXIDE 28.2 mmol/L (22-30.0); CHLORIDE 107.7 mmol/L (98-107); CREATINE KINASE 75.9 U/L (30-135); CREATININE 0.78 mg/dL (0.60-1.30); GLUCOSE 85.6 mg/dL (74-106); HDL CHOLESTEROL 54.8 mg/dL (35-80); LDL CHOLESTEROL,CALCULATED 69 mmol/L; POTASSIUM 4.07 mmol/L (3.5-5.1); SODIUM 137.6 mmol/L (134.5-145); TRIGLYCERIDES 38.7 mg/dL (0-150); VLDL CHOLESTEROL 8 mg/dL (2-30)
[2022-10-23 03:36] LABS: TROPONIN I < 0.012 ng/ml (0.0000-0.120)
[2022-10-23] MEDS ORDERED: BENADRYL IV ONE (04:32)
[2022-10-23] MEDS ORDERED: SODIUM CHLORIDE IV ONE (04:32)
[2022-10-23] MEDS ORDERED: BENADRYL ONE (04:36)
[2022-10-23] MEDS: CARAFATE PO SCH ×4 (06:03→20:22)
[2022-10-23] MEDS ORDERED: NEURONTIN PO SCH (09:00)
[2022-10-23] MEDS ORDERED: REQUIP PO SCH (09:00)
[2022-10-23] MEDS: NEURONTIN PO SCH ×2 (09:11→20:22)
[2022-10-23] MEDS: TORADOL IVP PRN (09:11)
[2022-10-23] MEDS: LOVENOX SUBCUT SCH (09:12)
[2022-10-23] MEDS: PROTONIX PO SCH ×2 (09:12→17:03)
--- NOTE | 2022-10-23 09:13 | PCM.PROG ---
Date Seen by Provider: 10/23/22 Time Seen by Provider: 08:10 Subjective: Still with chest pain. Pain worsened by position and movement of left shoulder and neck. Objective: Vitals: T=97.9 F, P=64, R=18, LK=840/77, SPO2=98 Appears comfortable. NAD. HEENT: [] Neck: []Supple, nontender. Lungs: [] Clear. BS equal. Chest wall nontender. CVS: [] RRR Abdomen: [] Extremities: [] Neurological: [] Skin: [] Lab/Tests/Diagnostic Imaging: [] (1) Chest pain: Status: Acute Code(s): R07.9 - Chest pain, unspecified SNOMED Code(s): 64805290 Assessment: Clinically stable. Plan: Dr Peters to see today; home when cleared by him.
[2022-10-23 10:50] LABS: TROPONIN I < 0.012 ng/ml (0.0000-0.120)
[2022-10-23] MEDS: SODIUM CHLORIDE 1,000 ML IV SCH ×2 (13:32→23:50)
[2022-10-23] MEDS: ASPIRIN EC PO SCH (17:03)
[2022-10-23] MEDS: SUVOREXANT 20 MG PO SCH ×2 (20:20)
[2022-10-23] MEDS: LIPITOR PO SCH (20:22)
[2022-10-23] MEDS: REQUIP PO SCH (20:22)
[2022-10-24 05:13] LABS: BASOPHILS # (AUTO) 0.1 K/uL (0-0.2); BASOPHILS % (AUTO) 0.9 % (0.0-3.0); EOSINOPHILS # (AUTO) 0.2 K/ul (0.0-0.7); EOSINOPHILS % (AUTO) 3.4 % (0.0-7.0); HEMATOCRIT 34.9 % (37.0-47.0); HEMOGLOBIN 11.6 g/dl (12.0-16.0); IMMATURE GRANULOCYTE % (AUTO) 0.2 % (0.0-5.0); LYMPHOCYTES # (AUTO) 1.7 K/uL (0.60-3.4); MEAN CORPUSCULAR HEMOGLOBIN 31.4 pg (27.0-31.0); MEAN CORPUSCULAR HGB CONC 33.2 (31.8-35.4); MEAN CORPUSCULAR VOLUME 94.6 fl (81.0-99.0); MONOCYTES # (AUTO) 0.5 K/uL (0.4-2.0); MONOCYTES % (AUTO) 9.1 (0-10); NEUTROPHILS # (AUTO) 2.9 K/ul (2.0-6.9); NEUTROPHILS % (AUTO) 54.4 % (42.2-75.2); PLATELET COUNT 165 10^3/uL (140-440); RDW COEFFICIENT OF VARIATION 13.9 % (11.6-14.8); RED BLOOD COUNT 3.69 10^6/ul (4.20-5.40); WHITE BLOOD COUNT 5.28 K/ul (4.6-10.2)
[2022-10-24 05:25] LABS: BLOOD UREA NITROGEN 15.3 mg/dL (7-17); CALCIUM 7.87 mg/dL (8.4-10.2); CARBON DIOXIDE 25.5 mmol/L (22-30.0); CHLORIDE 109.6 mmol/L (98-107); CREATININE 0.64 mg/dL (0.60-1.30); GLUCOSE 123.3 mg/dL (74-106); POTASSIUM 3.83 mmol/L (3.5-5.1); SODIUM 137.9 mmol/L (134.5-145)
[2022-10-24] MEDS: CARAFATE PO SCH ×4 (05:47→20:46)
[2022-10-24] MEDS: PROTONIX PO SCH ×2 (05:47→16:37)
[2022-10-24] MEDS: FERROUS SULFATE PO SCH (08:33)
[2022-10-24] MEDS: NEURONTIN PO SCH ×2 (08:34→20:45)
[2022-10-24] MEDS: ASPIRIN EC PO SCH (08:34)
[2022-10-24] MEDS: LOVENOX SUBCUT SCH (08:35)
--- NOTE | 2022-10-24 12:40 | PCM.PROG ---
Date Seen by Provider: 10/24/22 Time Seen by Provider: 12:38 Subjective: dx. chest pain Objective: Vitals: T=97.2 F, P=72, R=16, BP=90/64, SPO2=97 HEENT: []conjunctiva clear Neck: []supple Lungs: [] no repiratory distress CVS: []rrr Abdomen: []nondistended Extremities: []brandie Neurological: []alert Skin: []pink Lab/Tests/Diagnostic Imaging: [] (1) Chest pain: Status: Acute Code(s): R07.9 - Chest pain, unspecified SNOMED Code(s): 17666526 Plan: obtain authorization for stress testing, obtain Dr Fran brady
--- NOTE | 2022-10-24 13:09 | CONS ---
DATE OF CONSULTATION: 10/23/22 REASON FOR CONSULTATION: Chest pain HISTORY OF PRESENT ILLNESS: 51 year old white female was hospitalized on 10/22/22 with complaint of having chest pain. The patient says that her chest pain is around left nipple, sharp pain going through to the back and and going up the left clavicular area and neck area down to the left arm. According to the patient this type of pain started three weeks ago but again after 10 days total duration of 15-20 minutes. She says that this pain is also associated with left arm weakness. She also has some neck pain. On further questioning the patient says that she has weakness in both arm both almost dropped the resident. 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 REVIEW OF SYSTEMS: CONSTITUTIONAL: No night sweats. No fatigue, malaise, lethargy. No fever or chills. HEENT: Eyes: No visual changes. No eye pain. No eye discharge. ENT: No sinus drainage. No epistaxis. No sinus pain. No sore throat. No odynophagia. No ear pain. No congestion. RESPIRATORY: No cough, no congestion. No hemoptysis. No shortness of breath. CARDIOVASCULAR: No angina symptoms. No CHF symptoms. No atypical chest pain for CAD. No palpitations. No orthopnea. GASTROINTESTINAL: No abdominal pain. No nausea or vomiting. No diarrhea or constipation. No hematemesis. No hematochezia. GENITOURINARY: No urgency. No frequency. No dysuria. No hematuria. No obstructive symptoms. No discharge. No pain. No significant abnormal bleeding. MUSCULOSKELETAL: No musculoskeletal pain. No joint swelling. NEUROLOGICAL: No headache. No neck pain. No syncope. No seizures. No dizziness. PSYCHIATRIC: Not anxious. No depression. No suicidal thoughts. No homicidal thoughts. SKIN: No rash. No lesions. No wounds. ENDOCRINE: No unexplained weight loss. No weight gain. HEMATOLOGIC/LYMPHATIC: No anemia. No purpura. No petechiae. No prolonged or excessive bleeding. No palpable lymph nodes. MEDICATIONS: Albuterol Atorvastatin Epipen with her all time Ferrous sulfate Fluvoxamine Gabapentin Nitroglycerin Zofran Ozempic Pantoprazole Requip Carafate Suvorexant ALLERGIES: Hydrocodone Oxycodone Tramadol Venom Pain pills especially narcotics Remeron PAST MEDICAL HISTORY/PAST SURGICAL HISTORY: Coronary artery disease with stent placement five years ago that was in [place] Dyslipidemia Hypertension Anemia Neuropathy Gastroesophageal reflux disease Restless leg syndrome The patient had chest pain which was different than this type with substernal heaviness in July. She went to [facility] for further workup, Dobutamine stress echo was reported as negative for ischemia by Dr. Mora. The patient was referred to cardiology at [facility] by the Primary care 5 years ago. She has seen that woodworking craftsman, she doesn't remember the name, three times. SOCIAL/PERSONAL/FAMILY HISTORY: The patient has been smoking for number of years. Lives by herself. 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 No history of drug abuse. PHYSICAL EXAMINATION: GENERAL: The patient is oriented to time, place and person. VITAL SIGNS: Temperature 97.9, pulse 64, respiratory rate 18, blood pressure 110/80 and pulse ox 98% on room air. HEENT: Head normocephalic, atraumatic. Eyes: Extraocular muscles are intact. Pupils are equal, round and reactive to light and accommodation. Ears: No lesions. Nose appeared normal. Throat: No exudate or erythema. NECK: Supple. No JVD, no carotid bruit. No lymphadenopathy or thyromegaly. LUNGS: Decreased breath sounds but clear to auscultation. Percussion note normal. Chest symmetrical. HEART: S1, S2, no S3. No murmurs. No cyanosis or clubbing. No ascites. Pulses: Dorsalis pedis and posterior tibial pulses +1 to +2 bilaterally. ABDOMEN: Soft. Nontender. Bowel sounds active. No CVA tenderness. No mass felt. EXTREMITIES: No edema. Full range of motion of all extremities, equal. NEUROLOGIC: No focal deficit. Cranial nerves II through XII are grossly intact. No headache, no double vision or headache. SKIN: Not dry. Intact. Turgor - normal. LYMPHATIC: No palpable lymph nodes/no lymphedema. MUSCULOSKELETAL: Normal joints with no swelling. Muscle tone is normal. LABS: Hgb 13, hct 40, WBC 5,500 normal differential, creatinine 0.7, BUN 21, potassium 4. EKG reviewed which is since rhythm, No acute changes times two. Cardiac markers are negative. Cholesterol 132. LDL 69. HDL 54. Liver profile negative. SARS negative. The patient's echo also shows mitral valve prolapse with trace mitral regurgitation. The patient's LV contractility and LV size normal. Valves are normal. ASSESSMENT: 1. Chest pain, left arm pain with weakness of both upper extremities fairly atypical for coronary insufficiency 2. History consistent with cervical radiculopathy 3. Coronary artery disease with stent 4. History of hypertension 5. Dyslipidemia 6. History of smoking 7. Mild anemia 8. Restless leg syndrome. RECOMMENDATIONS: 1. Baby aspirin 81mg PO daily 2. Echocardiogram which was done today which showed normal LV contractility, normal valvular structures, No effusion, no thrombus 3. The patient had Dobutamine stress echo in July 2022 4. Due to insurance they are not going to approve another Dobutamine stress echo so we will do Dobutamine Stress echo sestamibi nuclear scan. Get prior authorization 5. The patient's chest pain is fairly atypical. We will continue to treat patient for reflux disease with Protonix as ordered with Carafate 6. Counseling for smoking done 7. Reviewed all the coronary artery disease and the risk factors with the patient. The patient's lipid profile is very good. 8. The patient says that she hasn't been taking Atorvastatin on regular basis ever since she had stent place or in between couple of years she had no taken them. We will refill her medications. 9. Recommend workup for cervical radiculopathy type of symptoms 10.Continue to monitor this patient's telemetry, oximetry Thanks for referral, will follow. LEVEL 5, EXTENSIVE MTDD
[2022-10-24] MEDS: TORADOL IVP PRN (14:54)
[2022-10-24] MEDS: SODIUM CHLORIDE 1,000 ML IV SCH (16:41)
[2022-10-24] MEDS: REQUIP PO SCH (20:45)
[2022-10-24] MEDS: LIPITOR PO SCH (20:45)
[2022-10-24] MEDS: SUVOREXANT 20 MG PO SCH (20:48)
[2022-10-25] MEDS: SODIUM CHLORIDE 1,000 ML IV SCH (05:05)
[2022-10-25] MEDS: CARAFATE PO SCH ×3 (05:36→16:34)
[2022-10-25] MEDS: PROTONIX PO SCH ×2 (05:36→16:37)
[2022-10-25] MEDS: ASPIRIN EC PO SCH (08:11)
[2022-10-25] MEDS: NEURONTIN PO SCH (08:11)
[2022-10-25] MEDS: LOVENOX SUBCUT SCH (08:12)
--- NOTE | 2022-10-25 10:22 | PCM.PROG ---
Date Seen by Provider: 10/25/22 Time Seen by Provider: 09:50 Subjective: No further chest pain. To have cardiac scan today. Asking to go home. Objective: Vitals: T=97.3 F, P=72, R=15, AW=794/65, SPO2=97 Alert and in NAD. HEENT: [] Neck: []No JVD Lungs: [] Chest clear. BS equal. CVS: [] RRR. No edema Abdomen: [] Extremities: [] Neurological: [] Skin: [] Lab/Tests/Diagnostic Imaging: [] (1) Chest pain: Status: Acute Code(s): R07.9 - Chest pain, unspecified SNOMED Code(s): 06088905 Plan: Patient to be discharged today if scan is negative.
--- NOTE | 2022-10-25 13:22 | NM ---
EXAM: MYOCARDIAL PERFUSION STUDY. DATE: 10/25/2022. COMPARISON: None. HISTORY: . TECHNIQUE: The patient was exercised using the Lele protocol. With the patient at maximum tolerated treadmill stress, 30.0 mCi of technetium 99m sestamibi was injected and SPECT myocardial perfusion b egun within 60 minutes. For comparison, a resting study was performed following injection of 10.0 mC i of technetium 99m sestamibi. A stress gated acquisition was acquired as part of the study to evalu ate for regional wall motion as well as to give an estimation of the left ventricular ejection fracti on. FINDINGS: On the stress images in the apical anteroseptal wall there is decreased perfusion with repe rfusion on delayed imaging. On the stress images in the apical inferolateral wall there is decreased perfusion with reperfusion on delayed imaging. The wall motion is normal The left ventricular eject ion fraction is 61%. IMPRESSION: Stress-induced ischemia involving the apical anteroseptal and apical inferolateral blanco. Normal wall motion with an LVEF estimated 61%
--- NOTE | 2022-10-25 13:56 | CONS ---
DATE OF SERVICE: 10/24/22 CONSULT FOLLOWUP SUBJECTIVE: 51 year old white female hospitalized with chest pain. The patient's chest pain seems to have subsided. The patient seems to have responded to antireflux measure. The patient's telemetry does not show any ST-T wave change and has sinus rhythm. Echocardiogram done yesterday showed normal LV contractility and normal valvular structures, possibility of mitral valve prolapse. The patient needs authorized for stress echo sestamibi likely tomorrow. REVIEW OF SYSTEMS: CONSTITUTIONAL: No night sweats. No fatigue, malaise, lethargy. No fever or chills. HEENT: Eyes: No visual changes. No eye pain. No eye discharge. ENT: No runny nose. No epistaxis. No sinus pain. No sore throat. No odynophagia. No ear pain. No congestion. RESPIRATORY: No cough, no congestion. No hemoptysis. CARDIOVASCULAR: No angina symptoms. No CHF symptoms. No atypical chest pain for CAD. No palpitations. No shortness of breath. GASTROINTESTINAL: No abdominal pain. No nausea or vomiting. No diarrhea or constipation. No hematemesis. No hematochezia. GENITOURINARY: No urgency. No frequency. No dysuria. No hematuria. No obstructive symptoms. No discharge. No pain. No significant abnormal bleeding. MUSCULOSKELETAL: No musculoskeletal pain. No joint swelling. No arthritis. NEUROLOGICAL: No headache. No neck pain. No syncope. No seizures. No dizziness. PSYCHIATRIC: Not anxious. No depression. No suicidal thoughts. No homicidal thoughts. SKIN: No rash. No lesions. No wounds. ENDOCRINE: No unexplained weight loss. No weight gain. HEMATOLOGIC/LYMPHATIC: No anemia. No purpura. No petechiae. No prolonged or excessive bleeding. No palpable lymph nodes. PHYSICAL EXAMINATION: VITAL SIGNS: Temperature 96.6, pulse 60, respiratory rate 16, blood pressure 90/55 and pulse ox 98% on room air. HEENT: Head normocephalic, atraumatic. Eyes: Extraocular muscles are intact. Pupils are equal, round and reactive to light and accommodation. Ears: No lesions. Nose appeared normal. Throat: No exudate or erythema. NECK: Supple. No JVD, no carotid bruit. No lymphadenopathy or thyromegaly. LUNGS:Decreased breath sounds but clear to auscultation. Percussion note normal. Chest symmetrical. HEART: S1, S2, no S3. No murmur. No cyanosis or clubbing. No ascites. Pulses: Dorsalis pedis and posterior tibial pulses +1 to +2 bilaterally. ABDOMEN: Soft. Nontender. Bowel sounds active. No CVA tenderness. No mass felt. EXTREMITIES: No edema. Full range of motion of all extremities, equal. NEUROLOGIC: No focal deficit. Cranial nerves II through XII are grossly intact. No headache, no double vision or headache. SKIN: Not dry. Intact. Turgor - normal. LYMPHATIC: No palpable lymph nodes/no lymphedema. MUSCULOSKELETAL: Normal joints with no swelling. Muscle tone is normal. LABS: Hgb 11.6, hct 34, WBC 5,200 normal differential, creatinine 0.6, BUN 15, potassium 3.8. ASSESSMENT: 1. Chest pain fairly atypical for coronary insufficiency 2. History of coronary artery disease with stent 3. History of smoking 4. Chronic lung disease RECOMMENDATIONS: 1. The patient again advised compliance with all aspects of medical care. 2. Coronary artery disease risk factors discussed and how to modify them. 3. Case discussed with Dr. Baca and also with Dr. Mcpherson. The patient needs to have 4. Stress Echo sestamibi, Obiee Obia Solution Architect of the hospital is going to prior authorize it, very likely the test will be done tomorrow as nuclear scan is available on Friday. CONDITION: So far stable. CODE: Intermediate MTDD
--- NOTE | 2022-10-25 14:23 | PCM.DC ---
Final Diagnosis: coronary artery disease nuclear cardiac scan positive for ischemia history of prior coronary artery stent insertion Physical Exam Appearance: Well-appearing, No pain distress and Well-nourished Ill-appearing: None Pain Distress: None Eyes: Conjunctiva clear ENT: Nose normal and Oropharynx normal Neck: Supple Respiratory: Airway patent, Breath sounds clear and Breath sounds equal Cardiovascular: RRR, No rub and No murmur GI/: Soft, Nontender, No masses and Bowel sounds normal Musculoskeletal: Normal strength, ROM intact and No edema Skin: Warm, Dry and Normal color Neurological: Alert and Oriented Psychiatric: Affect appropriate and Mood appropriate (1) Chest pain: Status: Acute Code(s): R07.9 - Chest pain, unspecified SNOMED Code(s): 97601847 (2) Ischemic heart disease due to coronary artery obstruction: Status: Acute Code(s): I24.0 - Acute coronary thrombosis not resulting in myocardial infarction; I25.9 - Chronic ischemic heart disease, unspecified SNOMED Code(s): 144185119 Reason for Hospitalization: chest pain Prognosis/Condition at Discharge: condition on discharge was stable Medications at Discharge: Patient discharged on same medications as she was taking at admission. Lab/Diagnostics: nuclear cardiac scan positive for ischemia Discharge Disposition: Transfer Hospital Course: Patient admitted with chest pain. She has coronary artery disease and has had prior coronary stent insertion. Cardiac nuclear scan demonstrated coronary ischemia. Plan: Patient to be transferred to another institution for further evaluation and treatment of her CAD and coronary ischemia.
[2022-10-25 14:32] VITALS: BP 132/89; TEMP 97.1
[2022-10-25] MEDS ORDERED: PLAVIX PO ONE (15:05)
[2022-10-25] MEDS ORDERED: ASPIRIN CHEWABLE PO STA (15:05)
--- NOTE | 2022-10-28 09:48 | ECHO2D ---
Date of Exam: 10/23/2022 Ordering Physician: HOSPITALIST/ DR. ELIAS CONSULT Room #: 106 Reason for Echo: SOB, CHEST PAIN, HX CARDIAC STENT M-Mode Normal Adult Results LV Dimensions Normal Adult Results AoV Opening excursions >1.6 >1.6 LVEDD-base- 3.5-5.8 4.8 Ao root dimensions 2.0-3.7 3.2 LVESD-base- 3.1-4.6 L. Atrium dimensions 1.9-3.8 3.7 Post. Wall thickness 0.8-1.1 1.1 IV septum (thickness) 0.7-1.2 1.1 Post. Wall excursion 0.72-1.3 NORMAL Septal motion NORMAL Systolic motion R. Ventricular cavity 1.5-2.0 NORMAL LVEF 60% 64% Paradoxical septal wall motion NORMAL 2-D : AORTIC VALVE, TRICUSPID VALVE AND PULMONARY VALVES NORMAL--MITRAL VALVE PROLAPSE NOTED WITH APICAL FOUR CHAMBER AND LEFT PARASTERNAL LONG AXIS, NORMAL LEFT VENTRICLE CONTRACTILITY AND LEFT VENTRICLE SIZE--NO EFFUSION, NO THROMBUS M-MODE: MV: MITRAL VALVE PROLAPSE (LATE SYSTOLIC) AV: NORMAL TV: NORMAL PV: CHAMBER SIZE: NORMAL WALL MOTION: NORMAL PERICARDIUM: NORMAL INTERPRETATION: 1. MITRAL VALVE PROLAPSE LATE SYSTOLIC--TRACE MITRAL REGURGITATION 2. NORMAL LEFT VENTRICLE CONTRACTILITY AND SIZE OF LEFT VENTRICLE 3. TRICUSPID VALVE, AORTIC VALVE AND PULMONARY VALVES NORMAL MTDD
--- NOTE | 2022-10-28 10:52 | STRESSECHO ---
Date of Test: 10/25/2022 Ordering Physician: HOSPITALIST/DR. 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 Reason for Exam: CHEST PAIN, CAD, STENT Smoking History: 49 YRS Height: 66" Weight: 180 LBS Current Medications: ATORVASTATIN, EPIPEN, IRON, FLUVOXAMINE, GABAPENTIN, OZEMPIC, ROPINIROLE, CARAFATE, SUVOREXANT Resting EKG: SINUS RHYTHM/ NO ACUTE CHANGES Target Heart Rate: 142/168 S-T SEGMENT STAGE MPH/GRADE HEART RATE BPM BLOOD PRESSURE MMHG RHYTHM +/- ELEVATION DEPRESSION SYMPTOMS AT REST 59 BPM 122/70 MMHG SR X NONE 1 1.7/10% 117 BPM 130/68 MMHG SR X NONE 2 2.5/12% 3 3.4/14% 4 4.2/16% 5 5.0/18% Immediately After 124 BPM 180/72 MMHG SR X BEGINNING OF CHEST TIGHTNESS Minutes Post Exercise 1" 90 BPM 140/60 MMHG SR X NONE Minutes Post Exercise 5" 61 BPM 120/58 MMHG SR X NONE DURATION OF EXERCISE: 3:21 MAXIMUM HEART RATE REACHED: 124 BPM REASON FOR TERMINATION: BEGINNING CHEST TIGHTNESS 96% OXYGEN SATURATION WITH EXERCISE METS 6.0 INTERPRETATION: 1. NO EVIDENCE OF ISCHEMIA FROM RESTING RESTING HEART RATE 59 BPM TO 124 BPM WITH EXERCISE 2. CHEST PAIN AT THE HEIGHT OF EXERCISE 3. NO ARRHYTHMIAS 4. SYSTOLIC HYPERTENSION WITH EXERCISE NORMAL LEFT VENTRICLE CONTRACTILITY--RESTING AND POST EXERCISE SESTAMIBI TO FOLLOW MTDD
--- NOTE | 2022-10-29 06:34 | CONS ---
DATE OF SERVICE: 10/25/22 CONSULT FOLLOWUP SUBJECTIVE: 51-year-old white female hospitalized with chest pain. The patient's chest pain was fairly atypical. Also has second component of chest pain which seems to be exertional. REVIEW OF SYSTEMS: CONSTITUTIONAL: No night sweats. No fatigue, malaise, lethargy. No fever or chills. HEENT: Eyes: No visual changes. No eye pain. No eye discharge. ENT: No runny nose. No epistaxis. No sinus pain. No sore throat. No odynophagia. No ear pain. No congestion. RESPIRATORY: No cough, no congestion. No hemoptysis. CARDIOVASCULAR: No chest pain today. No PND, no orthponea. No angina symptoms. No CHF symptoms. No palpitations. No shortness of breath. GASTROINTESTINAL: No reflux type of symptoms. No abdominal pain. No nausea or vomiting. No diarrhea or constipation. No hematemesis. No hematochezia. GENITOURINARY: No urgency. No frequency. No dysuria. No hematuria. No obstructive symptoms. No discharge. No pain. No significant abnormal bleeding. MUSCULOSKELETAL: No musculoskeletal pain. No joint swelling. No arthritis. NEUROLOGICAL: No headache. No neck pain. No syncope. No seizures. No dizziness. PSYCHIATRIC: Not anxious. No depression. No suicidal thoughts. No homicidal thoughts. SKIN: No rash. No lesions. No wounds. ENDOCRINE: No unexplained weight loss. No weight gain. HEMATOLOGIC/LYMPHATIC: No anemia. No purpura. No petechiae. No prolonged or excessive bleeding. No palpable lymph nodes. PHYSICAL EXAMINATION: VITAL SIGNS: Temperature 96.9, pulse 70, respiratory rate 16, blood pressure 127/85, pulse ox 98%. HEENT: Head normocephalic, atraumatic. Eyes: Extraocular muscles are intact. Pupils are equal, round and reactive to light and accommodation. Ears: No lesions. Nose appeared normal. Throat: No exudate or erythema. NECK: Supple. No JVD, no carotid bruit. No lymphadenopathy or thyromegaly. LUNGS: Decreased breath sounds but clear to auscultation. Percussion note normal. Chest symmetrical. HEART: S1, S2, no S3. No murmur. No cyanosis or clubbing. No ascites. Pulses: Dorsalis pedis and posterior tibial pulses +1 to +2 bilaterally. ABDOMEN: Soft. Nontender. Bowel sounds active. No CVA tenderness. No mass felt. EXTREMITIES: No pedal edema. Full range of motion of all extremities, equal. NEUROLOGIC: No focal deficit. Cranial nerves II through XII are grossly intact. No headache, no double vision or headache. SKIN: Not dry. Intact. Turgor - normal. LYMPHATIC: No palpable lymph nodes/no lymphedema. MUSCULOSKELETAL: Normal joints with no swelling. Muscle tone is normal. ASSESSMENT: 1. Chest pain which brought her to the emergency room, was fairly atypical. Exertional chest discomfort at times. 2. History of coronary artery disease with stent 5 years ago. 3. History of smoking. 4. Chronic lung disease. 5. Dyslipidemia. 6. History of hypertension. 7. Noncompliance. 8. Abnormal lower end of esophagus with thickening, reflux type of symptoms. RECOMMENDATIONS: Stress echo Sestamibi was done this morning. Stress echo part was negative. Sestamibi came back positive for stress induced ischemia involving apical anteroseptal and apical inferolateral wall with ejection fraction 61%. The case discussed with hospitalized, Dr. Alvarez. Recommended Dr. Alvarez to transfer this patient for further evaluation by sas statistical programmer. The case discussed and he agreed. Also discussed with the patient about her findings Stress Sestamibi and she is planning to be transferred to [facility] for cardiac catheterization done. Counseling for smoking done. Further evaluation for abnormal esophageal lower end findings, refer to primary care. CC: DR. JOYNER TIME SPENT: EXTENSIVE MTDD
--- NOTE | 2022-10-29 06:36 | CONS ---
CODING FOR BILLING 10/23/22 CONSULTATION - EXTENSIVE - LEVEL 5 10/24/22 INTERMEDIATE 10/25/22 EXTENSIVE MTDD
--- NOTE | 2022-10-29 08:59 | ECHOSTRESS ---
Date of Exam: 10/25/2022 Ordering Physician: HOSPITALIST/ DR. ELIAS CONSULT Reason for Echo: CHEST PAIN, SOB, CAD, STRESS TEST--NO ISCHEMIA M-Mode Normal Adult Results LV Dimensions Normal Adult Results AoV Opening excursions >1.6 LVEDD-base- 3.5-5.8 Ao root dimensions 2.0-3.7 LVESD-base- 3.1-4.6 L. Atrium dimensions 1.9-3.8 Post. Wall thickness 0.8-1.1 IV septum (thickness) 0.7-1.2 Post. Wall excursion 0.72-1.3 Septal motion Systolic motion R. Ventricular cavity 1.5-2.0 LVEF 60% Paradoxical septal wall motion 2-D: NORMAL LEFT VENTRICLE CONTRACTILITY--RESTING AND POST EXERCISE M-MODE: MV: AV: TV: PV: CHAMBER SIZE: WALL MOTION: NORMAL LEFT VENTRICLE CONTRACTILITY--RESTING AND POST EXERCISE PERICARDIUM: INTERPRETATION: 1. NORMAL LEFT VENTRICLE CONTRACTILITY--RESTING AND POST EXERCISE MTDD
== END 2022-10-25 17:30 | disposition short-term general hospital (02) | DRG 313 ==
LOC: ED 16:39 → MEDSURG A 16:39 → OBSVTOIN 20:39 → MEDSURG A 22:00
PROVIDERS: ADMIT Internal Medicine Geriatric Medicine; ATTEND Surgery
DX: E78.5 Hyperlipidemia, unspecified; I24.0 Acute coronary thrombosis not resulting in myocardial infarction; G25.81 Restless legs syndrome; R07.9 Chest pain, unspecified; J44.9 Chronic obstructive pulmonary disease, unspecified; Z95.5 Presence of coronary angioplasty implant and graft; Z79.899 Other long term (current) drug therapy; I10 Essential (primary) hypertension; I24.9 Acute ischemic heart disease, unspecified; D64.9 Anemia, unspecified; F17.210 Nicotine dependence, cigarettes, uncomplicated; Z79.01 Long term (current) use of anticoagulants; Z51.81 Encounter for therapeutic drug level monitoring; K22.9 Disease of esophagus, unspecified

== ENCOUNTER 2024-07-26 09:11 | Observation (INO) ==
--- NOTE | 2024-07-26 09:23 | ED.PDOC ---
General ED Provider: Dr. JOHANNY LITTLE MD Chief Complaint: Shortness of Air Stated Complaint: cannot breathe Time Seen by Provider: 07/26/24 09:22 Mode of Arrival: Walk-In Information Source: Patient Exam Limitations: No limitations Primary Care Provider: ROSS JOYNER MD Nursing and Triage Documentation Reviewed and Agree: Yes Does Patient Take Opioids?: Yes Is Patient Opioid Naive?: No What is Opioid Naive?: *Opioid Naive implies the patient is not already taking opioids or not chronically receiving opioids on a daily basis. *PRN dosing is not "usually" associated with tolerance. *Patients are at higher risk of over-sedation and aspiration. Is Patient Opioid Tolerant?: Yes What is Opioid Tolerant?: *Opioid Tolerance implies less than the expected response to an opioid. *Acquired tolerance is defined by the patient taking 60mg of oral morphine daily (or equianalgesic dose of another opioid) for 1 week or more. *Often associated with chronic pain. *May take more than usual dose to achieve desired pain control. Review of Systems Review Of Systems Constitutional: Reports Fever and Malaise; Denies Chills, Diaphoresis or Weakness COUNTS INCLUDE 234 BEDS AT THE [facility] Medical History Ankle stiffness M25.673 - Stiffness of unspecified ankle, not elsewhere classified (ICD-10) Romo splints S86.899A - Other injury of other muscle(s) and tendon(s) at lower leg level, unspecified leg, initial encounter (ICD-10) Muscle weakness M62.81 - Muscle weakness (generalized) (ICD-10) Restless legs syndrome G25.81 - Restless legs syndrome (ICD-10) Carpal tunnel syndrome G56.00 - Carpal tunnel syndrome, unspecified upper limb (ICD-10) Family History Mother Cardiac disease Hyperlipidemia COPD (chronic obstructive pulmonary disease) Breast cancer BROTHER Psychiatric disorder SISTER Breast cancer AUNT Breast cancer Social History Smoking and tobacco status: Current every day smoker Tobacco: How many years used: 25 Passive smoking exposure: No Quit status: considering quitting Second hand smoke exposure: No Smoking risk assessment performed: No Alcohol intake: current Alcohol intake frequency: a few times a week Alcohol type: beer Counseling given: No Counseling provided: none Substance use type: does not use Counseling given: No Counseling provided: none Laura/pentecostal: ISLAM Special laura needs: No Agree to transfusion: Yes Adopted: No Caregiver/support person: No Foster care: No Household members: none Housing: house Marital status: S SINGLE Lives independently: Yes Daycare: no daycare Number of children: 2 Number of grandchildren: 3 Highest education level completed: some college, no degree service: No retirement: No Current occupational status: employed Current occupational exposures/hazards: No Pets and animals: Yes (hamster) History of recent travel: No Sexually active: No Do you think of yourself as: straight/heterosexual Current gender identity: female Seatbelt use: always Drives intoxicated or rides with intoxicated courtesy van driver: No Water heater temperature set < 120 degrees: Yes Working smoke detector in home: Yes Fire extinguisher in home: Yes Carbon monoxide detector in home: Yes Firearms in home: No Surgical History Hx of appendectomy Z90.49 - Acquired absence of other specified parts of digestive tract (ICD- 10) History of coronary artery stent placement 2016 Z95.5 - Presence of coronary angioplasty implant and graft (ICD-10) ear tube removal History of gastrointestinal surgery gastric sleeve Z98.890 - Other specified postprocedural states (ICD-10) Status post myringotomy with insertion of tube Z96.22 - Myringotomy tube(s) status (ICD-10) Female Reproductive History Menstrual Hx Hysterectomy: Yes Hx Tubal Ligation: Yes Physical Exam Physical Exam Appearance: Reports Ill-appearing and Well-nourished Respiratory: Reports Breath sounds diminished, Crackles, Wheezes and Retractions Cardiovascular: Reports No murmur and Tachycardia Musculoskeletal: Reports Normal strength, No edema and No calf tenderness Interpretation Radiology Interpretation Radiology Interpretation By: ED Physician Radiology Results: Positive (Bilateral infiltrates compared to chest x-ray 01/04) Exam Interpreted: CXR Xray Comments: Pneumonia Physician Notification Case Discussed Physician Notified: Driss Morales Time of Notification: 11:00 Comments: Place in observation on telemetry Admit To: Observation Course Course 07/26/24 09:30 07/26/24 09:30 Orders, Labs, Meds: Lab Review 07/26/24 07/26/24 09:30 09:32 WBC 10.64 H RBC 4.31 Hgb 12.8 Hct 38.8 MCV 90.0 MCH 29.7 MCHC 33.0 RDW Coeff of Sandra 14.1 Plt Count 259 Immature Gran % (Auto) 0.8 Neut % (Auto) 79.5 H Lymph % (Auto) 12.9 [place] % (Auto) 5.7 Eos % (Auto) 0.9 Baso % (Auto) 0.2 Neut # (Auto) 8.5 H Lymph # (Auto) 1.4 [place] # (Auto) 0.6 Eos # (Auto) 0.1 Baso # (Auto) 0.0 Immature Gran # (Auto) 0.1 Sodium 137.5 Potassium 3.48 L Chloride 105.6 Carbon Dioxide 24.4 Anion Gap 10.98 BUN 12.0 Creatinine 0.70 Estimated GFR (MDRD) 87.00 BUN/Creatinine Ratio 17.14 Glucose 136.6 H Calcium 8.62 Magnesium 2.08 Influ A Molecular Assay Negative by naat Influ B Molecular Assay Negative by naat RSV Antigen Negative by naat SARS CoV-2 RNA Rapid MARLY Negative Orders Category Date Time Status OBSERVATION [PLACE PATIENT OBSERVATION] .TO [facility] ADMISSION 07/26/24 10:28 Active (MONITORED BED) NEBULIZER TREATMENT Stat CARDIO 07/26/24 09:27 Completed TELEMETRY MONITORING TELE CARE 07/26/24 10:28 Active BMP [BASIC METABOLIC PANEL] Stat LAB 07/26/24 09:30 Completed CBC W/ AUTO DIFF Stat LAB 07/26/24 09:30 Completed COVID [SARS COV-2 RNA RAPID MARLY] Stat LAB 07/26/24 09:32 Completed FLU A & B MOLECULAR [FLU A/B MOLECULAR] Stat LAB 07/26/24 09:32 Completed MAGNESIUM Stat LAB 07/26/24 09:30 Completed RSV Stat LAB 07/26/24 09:32 Completed Ceftriaxone/D5w 2 gm Premix [Rocephin 2 gm/50 ml D5w] Meds 07/26/24 10:30 Discontinued 2 gm in 50 ml IV ONCE Ipratropium/Albuterol Neb [Duoneb] Meds 07/26/24 10:11 Discontinued 3 ml NEB ONCE ONE Ipratropium/Albuterol Neb [Duoneb] Meds 07/26/24 09:26 Discontinued 3 ml NEB ONCE STA Levofloxacin [Levaquin] Meds 07/26/24 10:11 Discontinued 750 mg PO ONCE ONE Methylprednisolone Sod Succ/Pf [Solu-Medrol 125 mg] Meds 07/26/24 09:35 Discontinued 125 mg .ROUTE .STK-MED ONE Methylprednisolone Sod Succ/Pf [Solu-Medrol 125 mg] Meds 07/26/24 10:00 Discontinued 125 mg IVP ONCE ONE Methylprednisolone Sod Succ/Pf [Solu-Medrol 125 mg] 125 Meds 07/26/24 09:26 Discontinued mg 0.9 % Sodium Chloride [Sodium Chloride] 50 ml IV ONCE CXR [CHEST, 1V AP ONLY] Stat RADS 07/26/24 09:26 Completed Medications Generic Name Dose Route Start Last Admin Trade Name Freq PRN Reason Stop Dose Admin Acetaminophen 650 mg 07/26/24 11:18 Acetaminophen 325 Mg Tablet PO Q4H PRN Mild Pain Albuterol/Ipratropium 3 ml 07/26/24 12:00 Ipratropium/Albuterol Vial.[facility] RTQ6H [facility] Azithromycin 500 mg 07/27/24 09:00 Azithromycin 250 Mg Tablet PO 07/30/24 08:59 DAILY JUAN CEFTRIAXONE/D5W 1 GM PREMIX 1 gm in 50 mls @ 100 mls/hr 07/27/24 09:00 Rocephin 1 Gm/50 Ml D5w IV 07/30/24 08:59 DAILY JUAN Methylprednisolone Sodium Succinate 40 mg 07/26/24 18:00 Methylprednisolone Sod Succ/Pf 40 Mg/Ml Vial IVP Q8HR JUAN Discontinued Medications Generic Name Dose Route Start Last Admin Trade Name Aissatou PRN Reason Stop Dose Admin Albuterol/Ipratropium 3 ml 07/26/24 09:26 07/26/24 09:35 Ipratropium/Albuterol Vial.[facility] 07/26/24 09:27 3 ml ONCE STA Administration Albuterol/Ipratropium 3 ml 07/26/24 10:11 07/26/24 10:26 Ipratropium/Albuterol Vial.[facility] 07/26/24 10:12 3 ml ONCE ONE Administration Methylprednisolone Sodium 52 mls @ 100 mls/hr 07/26/24 09:26 07/26/24 09:39 Succinate 125 mg/ Sodium IV 07/26/24 09:58 Not Given Chloride ONCE ONE CEFTRIAXONE/D5W 2 GM PREMIX 2 gm in 50 mls @ 100 mls/hr 07/26/24 10:30 07/26/24 10:39 Rocephin 2 Gm/50 Ml D5w IV 07/26/24 10:59 100 mls/hr ONCE ONE Administration Levofloxacin 750 mg 07/26/24 10:11 07/26/24 10:39 Levofloxacin 500 Mg Tablet PO 07/26/24 10:12 750 mg ONCE ONE Administration Methylprednisolone Sodium Succinate 125 mg 07/26/24 10:00 07/26/24 09:39 Methylprednisolone Sod Succ/Pf 125 Mg/2 Ml Vial IVP 07/26/24 10:01 125 mg ONCE ONE Administration Vital Signs: Temp Pulse Resp BP Pulse Ox 07/26/24 09:19 97.3 F L 116 H 48 H 144/124 H 82 L TECHNIQUE: Single frontal chest radiograph. HISTORY: Shortness of breath. COMPARISON: 12/15/2023 IMPRESSION: Abnormal. The cardiomediastinal silhouette and pulmonary vasculature are grossly unremarkable. New patchy airspace opacity and the right perihilar and infrahilar regions of the mesial right lung base concerning for infiltrate/pneumonia. Remaining lungs clear. No effusion or pneumothorax. 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 Triage not yet completed. Short of breath and dyspneic. Wheezing diffusely. Retractions noted. IV Solu-Medrol and DuoNeb ordered. Orders placed for further treatment. Nurse at the bedside. Laboratory studies reviewed. Patient still tachypneic. Some improved after the first nebulizer treatment. Chest x-ray shows right-sided infiltrate and possibly bilateral. IV antibiotics ordered. Second nebulizer ordered. Patient informed of findings. 1025-hospitalist called regarding admission
[2024-07-26] MEDS: DUONEB NEB STA (09:35)
[2024-07-26 09:39] LABS: BASOPHILS % (AUTO) 0.2 % (0.0-3.0); EOSINOPHILS # (AUTO) 0.1 K/ul (0.0-0.7); EOSINOPHILS % (AUTO) 0.9 % (0.0-7.0); HEMATOCRIT 38.8 % (37.0-47.0); HEMOGLOBIN 12.8 g/dl (12.0-16.0); IMMATURE GRANULOCYTE # (AUTO) 0.1 (0.0-1.0); IMMATURE GRANULOCYTE % (AUTO) 0.8 % (0.0-5.0); LYMPHOCYTES # (AUTO) 1.4 K/uL (0.60-3.4); LYMPHOCYTES % (AUTO) 12.9 (10.0-50.0); MEAN CORPUSCULAR HEMOGLOBIN 29.7 pg (27.0-31.0); MONOCYTES # (AUTO) 0.6 K/uL (0.4-2.0); MONOCYTES % (AUTO) 5.7 (0-10); NEUTROPHILS # (AUTO) 8.5 K/ul (2.0-6.9); NEUTROPHILS % (AUTO) 79.5 % (42.2-75.2); PLATELET COUNT 259 10^3/uL (140-440); RDW COEFFICIENT OF VARIATION 14.1 % (11.6-14.8); RED BLOOD COUNT 4.31 10^6/ul (4.20-5.40); WHITE BLOOD COUNT 10.64 K/ul (4.6-10.2)
[2024-07-26] MEDS: SOLU-MEDROL 125 MG 125 MG in SODIUM CHLORIDE 50 ML IV ONE (09:39)
[2024-07-26] MEDS: SOLU-MEDROL 125 MG IVP ONE (09:39)
--- NOTE | 2024-07-26 09:50 | DI ---
EXAM: CHEST RADIOGRAPH TECHNIQUE: Single frontal chest radiograph. HISTORY: Shortness of breath. COMPARISON: 12/15/2023 IMPRESSION: Abnormal. The cardiomediastinal silhouette and pulmonary vasculature are grossly unremark able. New patchy airspace opacity and the right perihilar and infrahilar regions of the mesial right lung base concerning for infiltrate/pneumonia. Remaining lungs clear. No effusion or pneumothorax.
[2024-07-26 09:51] LABS: CALCIUM 8.62 mg/dL (8.4-10.2); CARBON DIOXIDE 24.4 mmol/L (22-30.0); CHLORIDE 105.6 mmol/L (98-107); CREATININE 0.7 mg/dL (0.60-1.30); GLUCOSE 136.6 mg/dL (74-106); MAGNESIUM 2.08 mg/dL (1.6-2.3); POTASSIUM 3.48 mmol/L (3.5-5.1); SODIUM 137.5 mmol/L (134.5-145)
[2024-07-26 09:57] LABS: MOLECULAR FLU A NEGATIVE BY NAAT (NEGATIVE); MOLECULAR FLU B NEGATIVE BY NAAT (NEGATIVE); RSV MOLECULAR NEGATIVE BY NAAT (NEGATIVE); SARS COV-2 RNA RAPID NAAT NEGATIVE (NEGATIVE)
[2024-07-26] MEDS: SOLU-MEDROL 125 MG ONE (10:01)
[2024-07-26] MEDS ORDERED: ROCEPHIN 1 GM VIAL IVP ONE (10:11)
[2024-07-26] MEDS: DUONEB NEB ONE (10:26)
[2024-07-26] MEDS: LEVAQUIN PO ONE (10:39)
[2024-07-26] MEDS: ROCEPHIN 2 GM/50 ML D5W 2 GM/50 ML BAG IV ONE (10:39)
[2024-07-26] MEDS ORDERED: TYLENOL PO PRN (11:18)
[2024-07-26] MEDS: DUONEB NEB SCH (11:39)
[2024-07-26 11:41] VITALS: BMI 32.3
--- NOTE | 2024-07-26 13:17 | PCM ---
Date of Service Date Seen by Provider: 07/26/24 Time Seen by Provider: 11:30 Admit Day/Time Admission Date: 07/26/24 Admission Time: 10:30 Reason for Admission Chief Complaint: COMMUNITY ACQUIRED PNEUMONIA, EXACERBATION Hospital Provider Hospital Provider[place] DEE [place] [facility] [place] Primary Care Physician: ROSS JOYNER MD History of Present Illness History of Present Illness: 53 yo female presented to the ER with complaints of shortness of breath. Reports she has not felt well since Thursday 07/20. Went to see PCP and was sent here for swabs which were all negative. Has been taking OTC Mucinex and cold medicine that were not effective. States she has ran low grade fever as well around 99.8. Reports productive cough with yellow sputum. Shortness of breath started 2-3 days ago and attempted to use her nebulizer machine but her medication was . Chest x-ray showed new infiltrate.Currently on RA but has increased work of breathing. Case Discussed With Case Discussed With: Patient's case was discussed with the ER Physicians, Dr. Navarro. [facility] Medical History Ankle stiffness M25.673 - Stiffness of unspecified ankle, not elsewhere classified (ICD-10) Romo splints S86.899A - Other injury of other muscle(s) and tendon(s) at lower leg level, unspecified leg, initial encounter (ICD-10) Muscle weakness M62.81 - Muscle weakness (generalized) (ICD-10) Restless legs syndrome G25.81 - Restless legs syndrome (ICD-10) Carpal tunnel syndrome G56.00 - Carpal tunnel syndrome, unspecified upper limb (ICD-10) Surgical History Hx of appendectomy Z90.49 - Acquired absence of other specified parts of digestive tract (ICD- 10) History of coronary artery stent placement 2016 Z95.5 - Presence of coronary angioplasty implant and graft (ICD-10) ear tube removal History of gastrointestinal surgery gastric sleeve Z98.890 - Other specified postprocedural states (ICD-10) Status post myringotomy with insertion of tube Z96.22 - Myringotomy tube(s) status (ICD-10) Family History Mother Cardiac disease Hyperlipidemia COPD (chronic obstructive pulmonary disease) Breast cancer BROTHER Psychiatric disorder SISTER Breast cancer AUNT Breast cancer Social History Smoking and tobacco status: Current every day smoker Tobacco: How many years used: 25 Passive smoking exposure: No Quit status: considering quitting Second hand smoke exposure: No Smoking risk assessment performed: No Alcohol intake: current Alcohol intake frequency: a few times a week Alcohol type: beer Counseling given: No Counseling provided: none Substance use type: does not use Counseling given: No Counseling provided: none Laura/advent: CHRISTIAN Special laura needs: No Agree to transfusion: Yes Adopted: No Caregiver/support person: No Foster care: No Household members: none Housing: house Marital status: S SINGLE Lives independently: Yes Daycare: no daycare Number of children: 2 Number of grandchildren: 3 Highest education level completed: some college, no degree service: No FCI: No Current occupational status: employed Current occupational exposures/hazards: No Pets and animals: Yes (hamster) History of recent travel: No Sexually active: No Do you think of yourself as: straight/heterosexual Current gender identity: female Seatbelt use: always Drives intoxicated or rides with intoxicated route delivery 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: No Water heater temperature set < 120 degrees: Yes Working smoke detector in home: Yes Fire extinguisher in home: Yes Carbon monoxide detector in home: Yes Firearms in home: No Allergies Allergies Allergy/AdvReac Type Severity Reaction Status Date / Time hydrocodone bitartrate (From AdvReac Intermediate itching Verified 07/26/24 09:25 [place]) oxycodone HCl (From Percocet) AdvReac Intermediate itching Verified 07/26/24 09:25 tramadol HCl (From Ultram) AdvReac Intermediate itching Verified 07/26/24 09:25 hydromorphone (From Dilaudid) AdvReac Mild itching Verified 07/26/24 09:25 venom-wasp AdvReac swelling Verified 07/26/24 09:25 "Pain Pills" AdvReac Intermediate itching Uncoded 07/21/24 18:12 remeron AdvReac Intermediate weight gain Uncoded 07/21/24 18:12 Current Medications Home Medications epinephrine 0.3 mg/0.3 mL injection, auto-injector (EpiPen) 0.3 mg (0.3 mL) IM ONCE #2 ea 03/08/20 [Rx Confirmed 07/26/24 Last Taken Unknown] albuterol sulfate 90 mcg/actuation aerosol inhaler (Ventolin HFA) 2 puff inhalation Q6H PRN shortness of breath or wheezing #8.5 grams 10/05/21 [Rx Confirmed 07/26/24 Last Taken Unknown] ferrous sulfate 325 mg (65 mg iron) tablet,delayed release 325 mg PO Q OTHER DAY #45 tabs 04/08/22 [Rx Confirmed 07/26/24 Last Taken 07/25/24 08:00 325 mg] nitroglycerin 0.4 mg sublingual tablet 0.4 mg sublingual Q5M PRN chest pain #30 tabs 08/02/22 [Rx Confirmed 07/26/24 Last Taken Unknown] aspirin 81 mg tablet,delayed release (Adult Aspirin Regimen) 81 mg PO QDAY 10/30/22 [History Confirmed 07/26/24 Last Taken 07/18/24 08:00 81 mg] ondansetron HCl 4 mg tablet 4 mg PO Q6H PRN nausea and vomiting #30 tabs 03/25/23 [Rx Confirmed 07/26/24 Last Taken Unknown] pen needle, diabetic 32 gauge x 5/32" (BD Ultra-Fine Judie Pen Needle) #100 ea 01/07/24 [Rx Confirmed 07/26/24 Last Taken Unknown] tramadol 50 mg tablet 50 mg PO BID PRN pain #30 tabs 01/28/24 [Rx Confirmed 07/26/24 Last Taken Unknown] pantoprazole 40 mg tablet,delayed release 40 mg PO QDAY #30 tabs 05/12/24 [Rx Confirmed 07/26/24 Last Taken 07/25/24 08:00 40 mg] meloxicam 15 mg tablet 15 mg PO DAILY #30 tabs 05/19/24 [Rx Confirmed 07/26/24 Last Taken 07/25/24 08:00 15 mg] pramipexole 0.125 mg tablet 0.125 mg PO QHS #60 tabs 05/19/24 [Rx Confirmed 07/26/24 Last Taken 07/25/24 21:00 0.125 mg] semaglutide (weight loss) 0.5 mg/0.5 mL subcutaneous pen injector 0.5 mg subcut QWEEK 05/19/24 [History Confirmed 07/26/24 Last Taken 07/21/24 08:00 0.5 mg] tizanidine 4 mg tablet 4 mg PO Q8H PRN muscle spasticity #60 tabs 05/19/24 [Rx Confirmed 07/26/24 Last Taken 07/25/24 08:00 4 mg] bupropion HCl 300 mg 24 hr tablet, extended release 300 mg PO QAM #90 tabs 05/24/24 [Rx Confirmed 07/26/24 Last Taken 07/23/24 08:00 300 mg] doxepin 25 mg capsule 25 mg PO QHS #90 caps 05/26/24 [Rx Confirmed 07/26/24 Last Taken 07/25/24 21:00 25 mg] duloxetine 30 mg capsule,delayed release (Cymbalta) 30 mg PO QDAY #30 caps 06/17/24 [Rx Confirmed 07/26/24 Last Taken 07/25/24 08:00 30 mg] gabapentin 600 mg tablet 1,200 mg PO TID 07/26/24 [History Confirmed 07/26/24 Last Taken 07/25/24 21:00 1,200 mg] ropinirole 2 mg tablet 2 mg PO DAILY 07/26/24 [History Confirmed 07/26/24 Last Taken 07/25/24 08:00 2 mg] Home Acetaminophen (Acetaminophen 325 Mg Tablet) 650 mg PO Q4H PRN PRN Reason: Mild Pain Albuterol/Ipratropium (Ipratropium/Albuterol Vial.Neb) 3 ml NEB RTQ6H JUAN Last Admin: 07/26/24 11:39 Dose: 3 ml Azithromycin (Azithromycin 250 Mg Tablet) 500 mg PO DAILY JUAN Stop: 07/30/24 08:59 CEFTRIAXONE/D5W 1 GM PREMIX (Rocephin 1 Gm/50 Ml D5w) 1 gm in 50 mls @ 100 mls/hr IV DAILY JUAN Stop: 07/30/24 08:59 Methylprednisolone Sodium Succinate (Methylprednisolone Sod Succ/Pf 40 Mg/Ml Vial) 40 mg IVP Q8HR JUAN Discontinued Medications Albuterol/Ipratropium (Ipratropium/Albuterol Vial.Neb) 3 ml NEB ONCE STA Stop: 07/26/24 09:27 Last Admin: 07/26/24 09:35 Dose: 3 ml Albuterol/Ipratropium (Ipratropium/Albuterol Vial.Neb) 3 ml NEB ONCE ONE Stop: 07/26/24 10:12 Last Admin: 07/26/24 10:26 Dose: 3 ml Methylprednisolone Sodium Succinate 125 mg/ Sodium Chloride 52 mls @ 100 mls/hr IV ONCE ONE Stop: 07/26/24 09:58 Last Admin: 07/26/24 09:39 Dose: Not Given CEFTRIAXONE/D5W 2 GM PREMIX (Rocephin 2 Gm/50 Ml D5w) 2 gm in 50 mls @ 100 mls/hr IV ONCE ONE Stop: 07/26/24 10:59 Last Admin: 07/26/24 10:39 Dose: 100 mls/hr Levofloxacin (Levofloxacin 500 Mg Tablet) 750 mg PO ONCE ONE Stop: 07/26/24 10:12 Last Admin: 07/26/24 10:39 Dose: 750 mg Methylprednisolone Sodium Succinate (Methylprednisolone Sod Succ/Pf 125 Mg/2 Ml Vial) 125 mg IVP ONCE ONE Stop: 07/26/24 10:01 Last Admin: 07/26/24 09:39 Dose: 125 mg Opioid Naive vs. Tolerant Does Patient Take Opioids?: No Is Patient Opioid Naive?: Yes What is Opioid Naive?: *Opioid Naive implies the patient is not already taking opioids or not chronically receiving opioids on a daily basis. *PRN dosing is not "usually" associated with tolerance. *Patients are at higher risk of over-sedation and aspiration. Is Patient Opioid Tolerant?: No What is Opioid Tolerant?: *Opioid Tolerance implies less than the expected response to an opioid. *Acquired tolerance is defined by the patient taking 60mg of oral morphine daily (or equianalgesic dose of another opioid) for 1 week or more. *Often associated with chronic pain. *May take more than usual dose to achieve desired pain control. Review of Systems Constitutional: Reports Fever, Chills and Weakness Head: Reports Normocephalic Eyes: Reports No symptoms Ears: Reports No symptoms Nose: Reports No symptoms Mouth: Reports No symptoms Throat: Reports No symptoms Cardiovascular: Reports No symptoms Respiratory: Reports Cough and Shortness of air Gastrointestinal: Reports No symptoms Genitourinary: Reports No Symptoms Musculoskeletal: Reports No symptoms Endocrine: Reports No symptoms Hematology: Reports No symptoms Immunology: Reports No symptoms Neurological: Reports No symptoms Psychiatric: Reports No symptoms Physical examination Most Recent Vital Signs: Most Recent Vital Signs Temperature 100.0 F 07/26/24 11:09 Temperature Source Temporal Artery Scan 07/26/24 11:09 Temperature Source Temporal Artery Scan 07/26/24 09:19 Pulse Rate 121 H 07/26/24 11:09 Respiratory Rate 32 H 07/26/24 11:09 Blood Pressure 144/124 H 07/26/24 09:19 Blood Pressure Left Arm 130/71 07/26/24 11:09 Blood Pressure Position Sitting 07/26/24 11:09 O2 Sat by Pulse Oximetry 97 07/26/24 11:09 Oxygen Delivery Method Room Air 07/26/24 12:00 Height 5 ft 4 in 07/26/24 11:09 Weight 85.3 kg 07/26/24 11:09 Telemetry Heart Rate 58 L 10/25/22 07:00 Appearance: Positive No Apparent Distress and Alert and Oriented x3 Skin: Positive Warm HEENT: Positive Normocephalic and PERRLA Neck: Positive Supple and Midline Trachea Chest/Lungs: Positive Symmetrical With Equal Breath Sounds, Clear to Auscultation Bilaterally and Other (tachypnea) Heart: Positive RRR and Pulses Normal GI/: Positive Soft, Nontender, Bowel Sounds Normal and No Distention Musculoskeletal: Positive Not Examined Extremities: Positive Intact Peripheral Pulses, Stable Joints Without Laxity and Good ROM in All Joints Neurological: Positive Sensation Intact, Motor intact, Alert, Oriented and Muscle Strength 5/5 in Upper and Lower Extremities Bilaterally Labs This Visit Labs This Visit: Labs This Visit 07/26/24 07/26/24 09:30 09:32 WBC 10.64 H RBC 4.31 Hgb 12.8 Hct 38.8 MCV 90.0 MCH 29.7 MCHC 33.0 RDW Coeff of Sandra 14.1 Plt Count 259 Immature Gran % (Auto) 0.8 Neut % (Auto) 79.5 H Lymph % (Auto) 12.9 [place] % (Auto) 5.7 Eos % (Auto) 0.9 Baso % (Auto) 0.2 Neut # (Auto) 8.5 H Lymph # (Auto) 1.4 [place] # (Auto) 0.6 Eos # (Auto) 0.1 Baso # (Auto) 0.0 Immature Gran # (Auto) 0.1 Sodium 137.5 Potassium 3.48 L Chloride 105.6 Carbon Dioxide 24.4 Anion Gap 10.98 BUN 12.0 Creatinine 0.70 Estimated GFR (MDRD) 87.00 BUN/Creatinine Ratio 17.14 Glucose 136.6 H Calcium 8.62 Magnesium 2.08 Influ A Molecular Assay Negative by naat Influ B Molecular Assay Negative by naat RSV Antigen Negative by naat SARS CoV-2 RNA Rapid MARLY Negative Imaging Imaging: EXAM: CHEST RADIOGRAPH IMPRESSION: Abnormal. The cardiomediastinal silhouette and pulmonary vasculature are grossly unremarkable. New patchy airspace opacity and the right perihilar and infrahilar regions of the mesial right lung base concerning for infiltrate/pneumonia. Remaining lungs clear. No effusion or pneumothorax. Review Statement Review Statement: I have independently reviewed and interpreted the labs/EKGs/imaging that were o rdered by the ER provider. I have reviewed all outside records that are available currently in our EMR including imaging/notes/labs from previous visits. Plan Plan: 1. Community Acquired Pneumonia - rocephin and azith, steroids, nebs, strep pneumo, legionella, MRSA, and sputum culture ordered 2. Hypokalemia, mild - replacement given, monitor 3. GERD - continue home medications 4. Chronic pain - continue home medications 5. Tobacco use - discussed cessation DVT Prophylaxis: Ambulation Time Spent: Greater than 80 minutes spent with patient, 50% of the time spent with this patient was devoted to counseling and coordination of care. Advanced Care Plannin minutes spent discussing advance care planning. Smoking Cessation: 3-10 minutes spent discussing smoking cessation. Disposition: Admit to: Med/surg Observation Full code Discussed Plan of Care with Dr. Anette Peters. Medications Medication Orders: Medications Ordered Category Date Time Status Acetaminophen [Tylenol] Meds 07/26/24 11:18 Active 650 mg PO Q4H PRN Azithromycin [Zithromax] Meds 07/27/24 09:00 Active 500 mg PO DAILY Ceftriaxone/D5w 1 gm Premix [Rocephin 1 gm/50 ml D5w] Meds 07/27/24 09:00 Active 1 gm in 50 ml IV DAILY Ipratropium/Albuterol Neb [Duoneb] Meds 07/26/24 12:00 Active 3 ml NEB RTQ6H Methylprednisolone Sod Succ/Pf [Solu-Medrol 40 mg] Meds 07/26/24 18:00 Active 40 mg IVP Q8HR
[2024-07-26] MEDS: WELLBUTRIN XL PO SCH (15:22)
[2024-07-26] MEDS: ASPIRIN EC PO SCH (15:22)
[2024-07-26] MEDS: NEURONTIN PO SCH (15:23)
[2024-07-26] MEDS: CYMBALTA PO SCH (15:23)
[2024-07-26] MEDS: TESSALON PERLES PO PRN (15:23)
[2024-07-26] MEDS: REQUIP PO SCH (15:24)
[2024-07-26] MEDS: SOLU-MEDROL 40 MG IVP SCH (17:15)
[2024-07-26] MEDS: ZANAFLEX PO PRN (17:22)
[2024-07-26] MEDS: MIRAPEX PO SCH (21:42)
[2024-07-26] MEDS: SINEQUAN PO SCH (21:43)
[2024-07-27 05:23] VITALS: BP 110/56; PULSE 79; RESP 16; TEMP 97.1
[2024-07-27] MEDS: PROTONIX PO SCH (05:34)
[2024-07-27 05:51] LABS: BASOPHILS % (AUTO) 0.2 % (0.0-3.0); HEMATOCRIT 34.1 % (37.0-47.0); HEMOGLOBIN 11.1 g/dl (12.0-16.0); IMMATURE GRANULOCYTE # (AUTO) 0.4 (0.0-1.0); IMMATURE GRANULOCYTE % (AUTO) 2.2 % (0.0-5.0); LYMPHOCYTES # (AUTO) 0.9 K/uL (0.60-3.4); LYMPHOCYTES % (AUTO) 4.7 (10.0-50.0); MEAN CORPUSCULAR HEMOGLOBIN 29.3 pg (27.0-31.0); MEAN CORPUSCULAR HGB CONC 32.6 (31.8-35.4); MONOCYTES # (AUTO) 0.9 K/uL (0.4-2.0); MONOCYTES % (AUTO) 4.7 (0-10); NEUTROPHILS # (AUTO) 17.3 K/ul (2.0-6.9); NEUTROPHILS % (AUTO) 88.2 % (42.2-75.2); PLATELET COUNT 241 10^3/uL (140-440); RDW COEFFICIENT OF VARIATION 14.2 % (11.6-14.8); RED BLOOD COUNT 3.79 10^6/ul (4.20-5.40)
[2024-07-27 05:52] LABS: WHITE BLOOD COUNT 19.56 K/ul (4.6-10.2)
[2024-07-27 05:58] LABS: ALANINE AMINOTRANSFERASE 13.8 U/L (0-35); ALBUMIN 3.75 g/dL (3.5-5.0); ALKALINE PHOSPHATASE 95.1 U/L (38-126); ASPARTATE AMINO TRANSFERASE 22.4 U/L (14-36); BILIRUBIN,TOTAL 0.21 mg/dL (0.2-1.3); BLOOD UREA NITROGEN 10.4 mg/dL (7-17); CALCIUM 8.89 mg/dL (8.4-10.2); CARBON DIOXIDE 21.5 mmol/L (22-30.0); CHLORIDE 105.5 mmol/L (98-107); CREATININE 0.6 mg/dL (0.60-1.30); GLUCOSE 288.4 mg/dL (74-106); POTASSIUM 3.8 mmol/L (3.5-5.1); SODIUM 136.9 mmol/L (134.5-145); TOTAL PROTEIN 7.11 g/dL (6.3-8.2)
--- NOTE | 2024-07-27 08:26 | DCSUM ---
Admission Date Admission Date: 07/26/24 Discharge Date Discharge Date: 07/27/24 Admission Diagnosis Admission Diagnosis: 1. Community Acquired Pneumonia 2. Hypokalemia, mild Discharge Diagnosis Discharge Diagnosis: 1. Community Acquired Pneumonia - Improving 2. Hypokalemia, mild - Resolved 3. GERD - chronic, stable 4. Chronic pain - stable 5. Tobacco use - discussed cessation Hospital Provider Hospital Provider: DEE AUGUSTINE, [facility] Primary Care Physician Primary Care Physician: ROSS JOYNER MD Summary of History and Physical Summary of History and Physical: 53 yo female presented to the ER with complaints of shortness of breath. Reports she has not felt well since Thursday 07/20. Went to see PCP and was sent here for swabs which were all negative. Has been taking OTC Mucinex and cold medicine that were not effective. States she has ran low grade fever as well around 99.8. Reports productive cough with yellow sputum. Shortness of breath started 2-3 days ago and attempted to use her nebulizer machine but her medication was . Chest x-ray showed new infiltrate.Currently on RA but has increased work of breathing. Hospital Course Subjective: Patient was given rocephin and azith for treatment of community acquired pneumonia as well as steroids and nebs. Work of breathing increased yesterday. No distress or conversational dyspnea this am. Feeling much better per patient. Strep pneumo, legionella, and sputum culture collected and pending. Will contact patient if need for change in antibiotics. Potassium mildly low at 3.48, replacement given and 3.8 this am. No changes to home medications. Patient requested refills for nebs and inhaler. Appearance: Pleasant, No Apparent Distress and Alert HEENT: MMM, Supple and No JVD CVS: No Murmur Abdomen: Soft, Non-Tender and No Distention Respiratory: No Dyspnea Extremities: No Edema Vital Signs: Most Recent Vital Signs Temperature 97.1 F L 07/27/24 05:22 Temperature Source Temporal Artery Scan 07/27/24 05:22 Temperature Source Temporal Artery Scan 07/26/24 09:19 Pulse Rate 79 07/27/24 05:22 Respiratory Rate 16 07/27/24 05:22 Blood Pressure 110/56 L 07/27/24 05:22 Blood Pressure Mean 74 07/27/24 05:22 Blood Pressure Left Arm 130/71 07/26/24 11:09 Blood Pressure Location Left Arm 07/27/24 05:22 Blood Pressure Position Sitting 07/27/24 05:22 O2 Sat by Pulse Oximetry 97 07/27/24 05:46 Oxygen Delivery Method Nasal Cannula 07/27/24 06:00 Oxygen Flow Rate 1 07/27/24 05:46 Fraction of Inspired Oxygen (FIO2) 97 07/26/24 11:09 Height 5 ft 4 in 07/26/24 11:09 Weight 85.3 kg 07/26/24 11:09 Telemetry Type Remote Telemetry 07/27/24 01:00 Telemetry Monitoring Continues 07/27/24 01:00 Telemetry Heart Rate 91 07/27/24 01:00 Telemetry SPO2 91 L 07/27/24 01:00 EKG CA Interval 0.19 07/27/24 01:00 EKG QRS Interval 0.05 L 07/27/24 01:00 Telemetry Strip Reading SR 07/27/24 01:00 Imaging: EXAM: CHEST RADIOGRAPH TECHNIQUE: Single frontal chest radiograph. HISTORY: Shortness of breath. COMPARISON: 12/15/2023 IMPRESSION: Abnormal. The cardiomediastinal silhouette and pulmonary vasculature are grossly unremarkable. New patchy airspace opacity and the right perihilar and infrahilar regions of the mesial right lung base concerning for infiltrate/pneumonia. Remaining lungs clear. No effusion or pneumothorax. Lab Results Last 24 Hours: 07/27/24 07/26/24 07/26/24 05:12 09:32 09:30 WBC 19.56 H D 10.64 H RBC 3.79 L 4.31 Hgb 11.1 L 12.8 Hct 34.1 L 38.8 MCV 90.0 90.0 MCH 29.3 29.7 MCHC 32.6 33.0 RDW Coeff of Sandra 14.2 14.1 Plt Count 241 259 Immature Gran % (Auto) 2.2 0.8 Neut % (Auto) 88.2 H 79.5 H Lymph % (Auto) 4.7 L 12.9 [place] % (Auto) 4.7 5.7 Eos % (Auto) 0.0 0.9 Baso % (Auto) 0.2 0.2 Neut # (Auto) 17.3 H 8.5 H Lymph # (Auto) 0.9 1.4 [place] # (Auto) 0.9 0.6 Eos # (Auto) 0.0 0.1 Baso # (Auto) 0.0 0.0 Immature Gran # (Auto) 0.4 0.1 Sodium 136.9 137.5 Potassium 3.80 3.48 L Chloride 105.5 105.6 Carbon Dioxide 21.5 L 24.4 Anion Gap 13.70 10.98 BUN 10.4 12.0 Creatinine 0.60 0.70 Estimated GFR (MDRD) 104.00 87.00 BUN/Creatinine Ratio 17.33 17.14 Glucose 288.4 H D 136.6 H Calcium 8.89 8.62 Magnesium 2.08 Total Bilirubin 0.21 AST 22.4 ALT 13.8 Alkaline Phosphatase 95.1 Total Protein 7.11 Albumin 3.75 Globulin 3.36 Albumin/Globulin Ratio 1.11 Influ A Molecular Assay Negative by naat Influ B Molecular Assay Negative by naat RSV Antigen Negative by naat SARS CoV-2 RNA Rapid MARLY Negative Discharge Instructions Discharge Planning: Discharge Planning > 40 minutes If patient is discharged with left ventricular systolic dysfunction: NA Discharged with a beta christopher? [] If no, why not? [] Discharged with an jade/arb? [] If no, why not? [] Diagnosis: Pneumonia Diet: Regular Activity: as tolerated Medications: [facility] Follow-up with PCP in 1 week Discharge Medications: RX At Discharge albuterol sulfate 90 mcg/actuation aerosol inhaler (Ventolin HFA) 2 puff inhalation Q6H PRN shortness of breath or wheezing #8.5 grams 07/27/24 [Rx] amoxicillin 875 mg-potassium clavulanate 125 mg tablet 1 tab PO BID 5 days #10 tabs 07/27/24 [Rx] azithromycin 500 mg tablet 500 mg PO DAILY #2 tabs 07/27/24 [Rx] ipratropium 0.5 mg-albuterol 3 mg (2.5 mg base)/3 mL nebulization soln 3 ml NEB Q4-6H PRN shortness of breath or wheezing #90 mL 07/27/24 [Rx] methylprednisolone 4 mg tablets in a dose pack (Medrol (Eduardo)) See Rx Instructions PO .COMPLEX #21 ea 07/27/24 [Rx] Discharge Plan Discharge Discharge Orders: Discharge Patient (ONCE); Ordered 07/27/24 Ordered By: BRITANY RENEE Activity Restrictions/Additional Instructions: Diagnosis: Pneumonia Diet: Regular Activity: as tolerated Medications: [facility] Instructions: Community Acquired Pneumonia (GEN) Prescriptions: New azithromycin 500 mg tablet 500 mg PO DAILY Qty: 2 0RF Rx Instructions: Start 07/28/24 ipratropium-albuterol 0.5 mg-3 mg(2.5 mg base)/3 mL Solution For Nebulization 3 ml NEB Q4-6H PRN (Reason: shortness of breath or wheezing) Qty: 90 0RF amoxicillin-pot clavulanate 875-125 mg tablet 1 tab PO BID 5 Days Qty: 10 0RF methylprednisolone [Medrol (Eduardo)] 4 mg tablets,dose pack See Rx Instructions .ROUTE .COMPLEX Qty: 21 0RF Rx Instructions: orally per package directions Continued ferrous sulfate 325 mg (65 mg iron) tablet,delayed release (DR/EC) 325 mg PO Q OTHER DAY Qty: 45 0RF (DME) pen needle, diabetic [BD Ultra-Fine Judie Pen Needle] 32 gauge x 5/32" needle See Rx Instructions .ROUTE .MEDSUPPLY Qty: 100 1RF Rx Instructions: once daily w/ victoza. pantoprazole 40 mg tablet,delayed release (DR/EC) 40 mg PO QDAY Qty: 30 0RF bupropion HCl 300 mg tablet extended release 24 hr 300 mg PO QAM Qty: 90 0RF gabapentin 600 mg tablet 1,200 mg PO TID ropinirole 2 mg tablet 2 mg PO DAILY albuterol sulfate [Ventolin HFA] 90 mcg/actuation HFA aerosol inhaler 2 puff inhalation Q6H PRN (Reason: shortness of breath or wheezing) Qty: 8.5 0RF Rx Instructions: On hold patient will call nitroglycerin 0.4 mg tablet, sublingual 0.4 mg sublingual Q5M PRN (Reason: chest pain) Qty: 30 0RF Rx Instructions: do not exceed 3 doses per episode aspirin [Adult Aspirin Regimen] 81 mg tablet,delayed release (DR/EC) 81 mg PO QDAY ondansetron HCl 4 mg tablet 4 mg PO Q6H PRN (Reason: nausea and vomiting) Qty: 30 0RF doxepin 25 mg capsule 25 mg PO QHS Qty: 90 0RF semaglutide (weight loss) 0.5 mg/0.5 mL pen injector 0.5 mg subcut QWEEK Rx Instructions: administer weeks 5 through 8 of therapy pramipexole 0.125 mg tablet 0.125 mg PO QHS Qty: 60 0RF Rx Instructions: take 1 tablet daily x3 days then increase to 2 daily if needed tizanidine 4 mg tablet 4 mg PO Q8H PRN (Reason: muscle spasticity) Qty: 60 0RF meloxicam 15 mg tablet 15 mg PO DAILY Qty: 30 0RF epinephrine [EpiPen] 0.3 mg/0.3 mL auto-injector 0.3 mg IM ONCE Qty: 2 12RF Rx Instructions: as a single dose, dispense 2. Please make sure of date of expiration. duloxetine [Cymbalta] 30 mg capsule,delayed release(DR/EC) 30 mg PO QDAY Qty: 30 0RF Discontinued tramadol 50 mg tablet 50 mg PO BID PRN (Reason: pain) Qty: 30 0RF Did you review [place] [employer] for ALL controlled substances?: No Discussed opioids are addictive and Narcan is available by prescription or from pharmacy.: No Condition: Fair Referrals: ROSS JOYNER MD [Primary Care Provider] - 07/28/24 2:30 pm
[2024-07-27] MEDS: ZITHROMAX PO SCH (08:33)
[2024-07-27] MEDS: FERROUS SULFATE PO SCH (08:33)
[2024-07-27] MEDS: MOBIC PO SCH (08:33)
[2024-07-27] MEDS: ROCEPHIN 1 GM/50 ML D5W 1 GM/50 ML BAG IV SCH (08:36)
== END 2024-07-27 10:40 | disposition home or self-care (01) ==
LOC: MEDSURG B 09:11 → ED 09:11 → MEDSURG B 11:10
PROVIDERS: ADMIT Hospitalist; ATTEND Nurse Practitioner Family
DX: Z20.822 Contact with and (suspected) exposure to COVID-19; Z79.899 Other long term (current) drug therapy; K21.9 Gastro-esophageal reflux disease without esophagitis; F17.210 Nicotine dependence, cigarettes, uncomplicated; G89.29 Other chronic pain; E87.6 Hypokalemia; J45.901 Unspecified asthma with (acute) exacerbation; Z51.81 Encounter for therapeutic drug level monitoring; J18.9 Pneumonia, unspecified organism